=== PATIENT | male | born 1970 | race Asian ===

== ENCOUNTER 2021-08-09 10:37 | Observation (INO) | payer BC, SELFPAY ==
--- OUTSIDE RECORDS SUMMARY | 2021-08-09 10:40 | XMS REPORT | Continuity of Care Document ---
:1970 Author Organization [facility] t Address [address] [place] [address] [address]. [address] [place] [address] Care Team Providers Name Role Phone Michelle VALENTINO Attending Clinician Payers Payer Name Policy Type Policy Number Effective Date Expiration Date S ource Problems Condition Condition Condition Status Onset Resolution Last Treating Co mments Source Name Details Category Date Date Treatment Clinician Date Encounter Encounter Disease Active Lillian catrachito for for 01-28 College follow-up follow-up 00:00: of surveillan surveillan 00 Me dicin ce of ce of e kidney kidney cancer cancer Aftercare Aftercare Disease Active Lillian catrachito following following 07-25 [facility] surgery surgery 00:00: of for for 00 Medicin neoplasm neoplasm e Left renal Left renal Disease Active [facility] mass 1- College 00:00: of 00 Medicin e Hematuria Hematuria Disease Active 2013-07 Lillian catrachito 2 College 00:00: of 00 Medicin e Left Left Disease Active 2013-07 [facility] kidney kidney 2-08 College mass mass 00:00: of 00 Medicin e Hypertensi Hypertensi Disease Active [facility] on on College of Medicin e Allergies, Adverse Reactions, Alerts Allergy Allergy Status Severity Reaction(s) Onset Inactive Treating Comm ents Source Name Type Date Date Clinician Ibuprofe Propensi Active Hives 2013-07 [facility] n ty to 08-31 College adverse 00:00: of reaction 00 Medicin s to e drug Salicyla Propensi Active Hives 2013-07 [facility] jannet ty to 08-31 College adverse 00:00: of reaction 00 Medicin s to e drug Shellfis Propensi Active Hives 2013-07 [facility] h-Derive ty to 08-31 College d adverse 00:00: of Products reaction 00 Medici n s to e drug Aspirin Propensi Active Hives 2013-07 [facility] ty to 08-20 [place] adverse 00:00: of reaction 00 Medicin s to e drug Nsaids Propensi Active Hives 2013-07 Not all [facility] ty to 08-20 the [place] adverse 00:00: times, of reaction 00 but he Medicin s to avoids e drug NSAIDS as much as possible. Social History Social Habit Start Date Stop Date Quantity Comments Source Exposure to Yes [facility] Venu rodriguez SARS-CoV-2 (event) of Med icine Cigarette 2020-06-20 2020-06-20 [facility] pack-years 00:00:00 00:00:00 of Medicine Tobacco use and 2020-06-20 2020-06-20 Never used [facility] Co llege exposure 00:00:00 00:00:00 of Medicine Alcohol intake 2020-06-20 2020-06-20 [facility] Col lege 00:00:00 00:00:00 of Medicine Cigarettes smoked 2020-06-20 2020-06-20 [facility] current (pack per 00:00:00 00:00:00 of Medi day) - Reported History of tobacco 2013-06-19 Cigarette Smoker [facility] use 00:00:00 of Medicine Sex Ass[birth year] M [facility] Co [employer]lege 00:00:00 00:00:00 of Medicine Smoking Status Start Date Stop Date Source Former smoker 2020-06-20 00:00:00 2020-06-20 00:00:00 [facility] regan of Medicine Medications Ordered Filled Start Stop Current Ordering Indication Dosage Frequency Signature Comments Components Source Medication Medication Date Date Medication? Clinician (SIG) Name Name [place]-3 2019-07 Yes 1000mg Take 1,000 [facility] Fatty Acids 2-09 mg by [place] (FISH OIL) 15:27: mouth two of 1000 MG 42 times Medicin CAPS daily. e Ascorbic 2019-07 Yes 1000mg Take 1,000 [facility] Acid 2-09 mg by [place] (VITAMIN C) 15:27: mouth of 1000 MG 42 daily. Medicin TABS e Multiple 2019-07 Yes Take by [facility] blood Vitamins-Mi 2-09 mouth. Colleg e n[facility] (EYE 15:27: of VITAMINS 42 Medicin OR) e RESTASIS Yes INSTILL 1 [facility] 0.05 % 4-12 DROP INTO College ophthalmic 00:00: BOTH EYES of emulsion 00 TWICE A Medicin DAY e levobunolol 2018- Yes 1 DROP IN [facility] (BETAGAN) 4-12 LEFT EYE Colleg e 0.5 % 00:00: EVERY 12 of ophthalmic 00 HOURS Medicin solution e Immunizations Ordered Immunization Filled Immunization Date Status Commen ts Source Name Name Influenza Quad-PF 2020-03-27 Completed [facility] 00:00:00 of Medicine Vital Signs Vital Name Observation Time Observation Value Comments Source Systolic blood 2020-06-20 15:28:00 145 mm[Hg] [facility] pressure Medicine Diastolic blood 2020-06-20 15:28:00 85 mm[Hg] [facility] Medicine Heart rate 2020-06-20 15:28:00 60 /min [facility] Body temperature 2020-06-20 15:28:00 36.72 Annamaria [facility] Respiratory rate 2020-06-20 15:28:00 17 /min [facility] Body height 2020-06-20 15:28:00 170.2 cm [facility] Body weight 2020-06-20 15:28:00 83.915 kg [facility] BMI 2020-06-20 15:28:00 28.98 kg/m2 [facility] Procedures Procedure Date / Time Performed Performing Clinician Sour e POCT URINALYSIS 2020-06-20 00:00:00 Malachi Martinez [facility] Radha ege of DIPSTICK Medicine Plan of Care Planned Activity Planned Date Details Comments Source Future Scheduled Test COLON CANCER SCREENING: [facility] COLONOSCOPY [code = Medicine COLON CANCER SCREENING: COLONOSCOPY] Future Scheduled Test TETANUS SHOT (ADULT) [facility] [code = TETANUS SHOT Medicin e (ADULT)] Future Scheduled Test BMI FOLLOW UP PLAN [facility] [code = BMI FOLLOW UP Medici ne PLAN] Future Scheduled Test HEPATITIS C SCREENING [facility] [code = HEPATITIS C Medicine SCREENING] Future Scheduled Test HIV SCREENING [code = [facility] HIV SCREENING] Medicine Future Scheduled Test ZOSTER VACCINE (1 of 2) [facility] [code = ZOSTER VACCINE Medic ine (1 of 2)] Encounters Start End Encounter Admission Attending Care Care Encounter Source Date/Time Date/Time Type Type Clinicians Facility Department ID 2020-06-20 2020-06-20 Office LEORA Martinez [id number] [facility] 08:34:32 08:49:32 Visit Malachi AMBULATOR [id number] College Y [id number] of [id number] Medi delvin 300 e Results Test Description Test Time Test Comments Results Result Comments Source POCT URINALYSIS DIPSTICK 2020-06-20 15:27:00 Test Item Value Reference Range Interpretation Comme nts COLOR UA (test code = 5778-6) Yellow YELLOW/STRAW CLARITY UA (test code = 63214-0) Clear CLEAR GLUCOSE UA (test code = 5792-7) Negative NEGATIVE BILIRUBIN UA (test code = 5770-3) Negative NEGATIVE KETONES UA (test code = 40990-6) Negative NEGATIVE SPECIFIC GRAVITY UA (test code = 5811-5) 1.005-1.035 BLOOD UA (test code = 5794-3) Negative NEGATIVE PH UA (test code = 5803-2) 5-9 PROTEIN UA (test code = 5804-0) Trace NEGATIVE UROBILINOGEN UA (test code = 5818-0) 0.02 E.U/DL NORMAL MG/DL LEUKOCYTE ESTERASE UA (test code = 5799-2) Negative NEGATIVE NITRITE UA (test code = 5802-4) Negative NEGATIVE REDUCING SUBSTANCES URINE (test code = 48242-3) [facility]
[2021-08-09] MEDS ORDERED: FAMOTIDINE 20 MG/2 ML VIAL IV ONE (11:24)
[2021-08-09] MEDS ORDERED: MORPHINE 4 MG/ML SYR ONE ×2 (11:24→12:52)
[2021-08-09] MEDS ORDERED: ONDANSETRON 4 MG/2 ML VIAL ONE (11:24)
[2021-08-09 11:29] LABS: Absolute Lymphocytes (CBC) 1.3 K/uL (0.7-4.9); Hematocrit 47.3 % (39.6-49.0); Lymphocytes % 12.3 % (15.3-44.8); MPV 7.2 fL (7.6-11.3); RBC Red Blood Cell Count 5.08 M/uL (4.33-5.43)
[2021-08-09 11:38] LABS: Protime INR 0.98
[2021-08-09 11:39] LABS: Albumin 4.1 g/dL (3.4-5.0); Bilirubin Direct 0.2 mg/dL (0-0.2); Bilirubin Total 0.9 mg/dL (0.2-1.0); Magnesium 2.1 mg/dL (1.8-2.4); Potassium 3.9 mmol/L (3.5-5.1); Protein, Total 8.5 g/dL (6.4-8.2)
--- NOTE | 2021-08-09 11:53 | RAD REPORT ---
EXAM DESCRIPTION: CT - Head Brain Wo Cont - 08/09/2021 11:40 am CLINICAL HISTORY: vomiting;Dizziness;Headache;Weakness Headache, drowsiness. COMPARISON: No comparisons TECHNIQUE: All CT scans are performed using dose optimization technique as appropriate and may inclu de automated exposure control or mA/KV adjustment according to patient size. FINDINGS: No intracranial hemorrhage, hydrocephalus or extra-axial fluid collection.No areas of brai n edema or evidence of midline shift. Mild mucoperiosteal thickening affects the left maxillary antrum. The paranasal sinuses and mastoids are otherwise clear. The calvarium is intact. IMPRESSION: No acute intracranial abnormality.
[2021-08-09 11:54] LABS: Troponin High Sensitivity 133.9 pg/mL (<58.9)
--- NOTE | 2021-08-09 11:54 | RAD REPORT ---
EXAM DESCRIPTION: RAD - Chest Single View - 08/09/2021 11:34 am CLINICAL HISTORY: CHEST PAIN Chest pain. COMPARISON: Chest Pa And Lat (2 Views) dated 11/18/2017; Chest Pa And Lat (2 Views) dated 07/16/2016; Ch est Pa And Lat (2 Views) dated 01/23/2016; CHEST PA AND LAT 2 VIEW dated 03/08/2015 FINDINGS: Portable technique limits examination quality. The lungs are grossly clear. The heart is normal in size. No displaced fractures. IMPRESSION: No acute intrathoracic process suspected.
--- NOTE | 2021-08-09 11:56 | RAD REPORT ---
EXAM DESCRIPTION: CT - CTORBIT CLINICAL HISTORY: headache/ htn Headache and eye pain COMPARISON: No comparisons TECHNIQUE: Axial 2 mm thick images of the face were obtained with sagittal and coronal reconstructio n images. All CT scans are performed using dose optimization technique as appropriate and may include automated exposure control or mA/KV adjustment according to patient size. FINDINGS: Both globes are normal in size.No vitreous abnormality seen.No intraconal or extra-conal m ass or other significant abnormality. No proptosis evident. Mild mucoperiosteal thickening of the left maxillary antrum is seen in with subtle bony thickening mar ggestive of chronic sinusitis. IMPRESSION: No pathologic orbital finding. Mild left maxillary chronic sinusitis.
--- NOTE | 2021-08-09 12:45 | EDPHYS ---
Physician Documentation [facility] Name: Jose Manuel Malin Jr Age: 50 yrs Sex: Male : 1970 Arrival Date: 08/09/2021 Time: 10:37 Bed 27 Private MD: ED Physician Real Mcmanus HPI: 08/09 13:39 This 50 yrs old Male presents to ER via Ambulatory with complaints of High Blood kdr Pressure. 13:39 Patient began with headache yesterday morning. Not persisted on centered around his kdr left orbit and left parietal area of his scalp. He was able to obtain an appointment with Dr. Yosef workman this morning to determine if the pain was due to some ocular issue. Patient states that his ocular pressure per Dr. Yosef workman was borderline but did not require treatment. Dr. Yosef workman then scheduled and orbit CT for Thursday. After leaving the office the patient became nauseated and vomited. His headache was not specifically worse. After the headache he had some broad anterior chest wall pain. But at no time over the course of the last few days has the patient specifically complained of chest pain without an apparent associated cause.. Onset: The symptoms/episode began/occurred yesterday. Severity of symptoms: At their worst the symptoms were mild moderate just prior to arrival, in the emergency department the symptoms are unchanged. The patient has not experienced similar symptoms in the past. The patient has not recently seen a physician. Historical: - Allergies: 10:45 Aspirin; ap3 10:45 NSAIDS; ap3 - Home Meds: 10:45 omeprazole 40 mg Oral cpDR 1 cap [Active]; Crestor 5 mg oral tab [Active]; ap3 - PMHx: 11:56 Hypertensive disorder; jl7 - Immunization history:: Client reports receiving the 2nd dose of the Covid vaccine, and booster. - Social history:: Smoking status: Patient denies any tobacco usage or history of. ROS: 13:39 Constitutional: Negative for fever, chills, and weight loss, Eyes: Negative for injury, kdr pain, redness, and discharge, Neck: Negative for injury, pain, and swelling, Respiratory: Negative for shortness of breath, cough, wheezing, and pleuritic chest pain, Back: Negative for injury and pain, : Negative for injury, bleeding, discharge, and swelling, MS/Extremity: Negative for injury and deformity, Skin: Negative for injury, rash, and discoloration. 13:39 Eyes: Positive for Left orbit pain, Negative for acute changes, blurry vision, icterus, injury or acute deformity, matting, photophobia, redness, sunken appearance, swelling, tearing, vision loss, visual disturbance. 13:39 Abdomen/GI: Positive for nausea and vomiting, Negative for abdominal pain, diarrhea, constipation, abdominal cramps, abdominal distension, anorexia, dysphagia, hematemesis, black/tarry stool, rectal pain, rectal bleeding, bowel incontinence. Exam: 13:39 Constitutional: This is a well developed, well nourished patient who is awake, alert, kdr and in no acute distress. Head/Face: Normocephalic, atraumatic. Eyes: Pupils equal round and reactive to light, extra-ocular motions intact. Lids and lashes normal. Conjunctiva and sclera are non-icteric and not injected. Cornea within normal limits. Periorbital areas with no swelling, redness, or edema. Neck: Trachea midline, no thyromegaly or masses palpated, and no cervical lymphadenopathy. Supple, full range of motion without nuchal rigidity, or vertebral point tenderness. No Meningismus. Chest/axilla: Normal chest wall appearance and motion. Nontender with no deformity. No lesions are appreciated. Cardiovascular: Regular rate and rhythm with a normal S1 and S2. No gallops, murmurs, or rubs. Normal PMI, no JVD. No pulse deficits. Respiratory: Lungs have equal breath sounds bilaterally, clear to auscultation and percussion. No rales, rhonchi or wheezes noted. No increased work of breathing, no retractions or nasal flaring. Abdomen/GI: Soft, non-tender, with normal bowel sounds. No distension or tympany. No guarding or rebound. No evidence of tenderness throughout. Back: No spinal tenderness. No costovertebral tenderness. Full range of motion. Skin: Warm, dry with normal turgor. Normal color with no rashes, no lesions, and no evidence of cellulitis. MS/ Extremity: Pulses equal, no cyanosis. Neurovascular intact. Full, normal range of motion. Neuro: Awake and alert, GCS 15, oriented to person, place, time, and situation. Cranial nerves II-XII grossly intact. Motor strength 5/5 in all extremities. Sensory grossly intact. Cerebellar exam normal. Normal gait. Psych: Awake, alert, with orientation to person, place and time. Behavior, mood, and affect are within normal limits. Vital Signs: 10:43 BP 174 / 89; Pulse 61; Resp 17; Temp 98.2; Pulse Ox 98% ; Weight 91.17 kg; Height 5 ft. ap3 7 in. (170.18 cm); Pain 6/10; 11:10 BP 157 / 91; Pulse 71; Resp 17; Pulse Ox 97% on R/A; ww 12:00 BP 147 / 96; Pulse 58; Resp 20; Pulse Ox 99% on R/A; jg9 13:00 BP 150 / 97; Pulse 56; Resp 16 S; Pulse Ox 100% on R/A; jg9 10:43 Body Mass Index 31.48 (91.17 kg, 170.18 cm) ap3 MDM: 12:44 Patient medically screened. kdr 13:39 Data reviewed: vital signs, nurses notes, lab test result(s), EKG, radiologic studies. kdr Counseling: I had a detailed discussion with the patient and/or guardian regarding: the historical points, exam findings, and any diagnostic results supporting the discharge/admit diagnosis, lab results, radiology results, the need for further work-up and treatment in the hospital. 08/09 11:03 Order name: Basic Metabolic Panel [facility] 08/09 11:03 Order name: CBC with Diff [facility] 08/09 11:03 Order name: LFT's; Complete Time: 12: [facility] 08/09 11:03 Order name: Magnesium; Complete Time: 12: [facility] 08/09 11:03 Order name: NT PRO-BNP; Complete Time: 12: [facility] 08/09 11:03 Order name: PT-INR; Complete Time: 12: [facility] 08/09 11:03 Order name: Troponin HS; Complete Time: 12: [facility] 08/09 11:03 Order name: XRAY Chest (1 view); Complete Time: 12: [facility] 08/09 11:03 Order name: Basic Metabolic Panel; Complete Time: 12: [facility] 08/09 11:03 Order name: CBC with Automated Diff; Complete Time: 12: [facility] 08/09 11:57 Order name: SARS-COV-2 RT PCR (Document "Date of Onset" if Symptomatic) 08/09 15:03 Order name: Creatine Phosphokinase [facility] 08/09 15:03 Order name: Creatine Phosphokinase [facility] 08/09 16:05 Order name: Troponin High Sensitivity [facility] 08/09 11:03 Order name: EKG; Complete Time: 11:04 kdr 08/09 11:03 Order name: Cardiac monitoring; Complete Time: 11:10 kdr 08/09 11:03 Order name: EKG - Nurse/Tech; Complete Time: 11:10 kdr 08/09 11:03 Order name: IV Saline Lock; Complete Time: 11:10 kdr 08/09 11:03 Order name: Labs collected and sent; Complete Time: 11: [facility] 08/09 11:15 Order name: CT Head Brain wo Cont; Complete Time: 12:01 [facility] 08/09 11:23 Order name: Orbits Wo Con W/ Mpr; Complete Time: 12:01 [facility] 08/09 12:38 Order name: MRI - Brain W/Wo Cont [facility] 08/09 15:03 Order name: Heart Healthy [facility] 08/09 11:03 Order name: O2 Per Protocol; Complete Time: 11:10 kdr 08/09 11:03 Order name: O2 Sat Monitoring; Complete Time: 11:10 kdr Administered Medications: 11:28 Drug: Zofran (Ondansetron) 4 mg Route: IVP; Site: right antecubital; jg9 13:01 Follow up: Response: Nausea is decreased jg9 11:30 Drug: morphine 4 mg Route: IVP; Site: right antecubital; jg9 12:00 Follow up: Response: No adverse reaction; Pain is decreased jg9 11:31 Drug: Pepcid (famotidine) 20 mg Route: IVP; Site: right antecubital; jg9 13:00 Follow up: Response: No adverse reaction jg9 12:50 Drug: morphine 4 mg {Note: RASS-0, medication given IV.} Route: IM; Site: Other; jg9 13:03 Follow up: Response: No adverse reaction; Pain is decreased jg9 12:57 Drug: PlaVIX (clopidogrel) 75 mg Route: PO; jg9 13:03 Follow up: Response: No adverse reaction jg9 12:57 Drug: Lisinopril 20 mg Route: PO; jg9 13:03 Follow up: Response: No adverse reaction jg9 Disposition Summary: 08/09/21 12:44 Hospitalization Ordered Hospitalization Status: Observation kdr Provider: Marianela Pool kdr Condition: Fair kdr Problem: an ongoing problem kdr Symptoms: have improved kdr Bed/Room Type: Standard kdr Location: Intensive Care Unit(08/10/21 00:16) Room Assignment: 1-(08/10/21 00:16) mw Diagnosis - Headache kdr - Hypertensive heart disease without heart failure kdr - Subsequent non-ST elevation (NSTEMI) myocardial infarction kdr Forms: - Medication Reconciliation Form kdr - SBAR form kdr Signatures: Dispatcher [employer] EDMS Ruthie Aguirre RN RN mw Real Mcmanus MD MD kdr Leal, Jahala RN RN jl7 Elva Melchor RN RN ap3 Lynda Maldonado Jennifer RN RN jg9 Corrections: (The following items were deleted from the chart) 10:47 10:45 Home Meds: None; ap3 ap3 11:23 11:19 CT-ORBITS WITHOUT CONTRAST ordered. EDMS EDMS 15:39 12:44 Telemetry/MedSurg (observation) kdr eb 15:39 12:44 kdr eb 08/10 00:16 08/09 15:39 [facility] ER HOLD eb mw 08/10 00:16 08/09 15:39 ERHOLD- eb mw
--- NOTE | 2021-08-09 12:45 | ER ---
Nurse's Notes [facility] Name: Jose Manuel Malin Jr Age: 50 yrs Sex: Male : 1970 Arrival Date: 08/09/2021 Time: 10:37 Bed 27 Private MD: Diagnosis: Headache;Hypertensive heart disease without heart failure;Subsequent non-ST elevation (NSTEMI) myocardial infarction Presentation: 08/09 10:43 Chief complaint: Patient states: he has a headache and reports high blood pressure ap3 reading prior to arrival. Patient reports he left work early last night due to the same issues. Patient denies hx of htn. Coronavirus screen: At this time, the client does not indicate any symptoms associated with coronavirus-19. Ebola Screen: No symptoms or risks identified at this time. Initial Sepsis Screen: Does the patient meet any 2 criteria? No. Patient's initial sepsis screen is negative. Does the patient have a suspected source of infection? No. Patient's initial sepsis screen is negative. Risk Assessment: Do you want to hurt yourself or someone else? Patient reports no desire to harm self or others. Onset of symptoms was August 08, 2021. 10:43 Method Of Arrival: Ambulatory ap3 10:43 Acuity: HELGA 3 ap3 Triage Assessment: 10:47 General: Appears uncomfortable, Behavior is calm, cooperative. Pain: Complains of pain ap3 in left eye and left side of head Pain radiates to ro right side of the head Pain currently is 6 out of 10 on a pain scale. Pain began gradually, 1 day ago. Neuro: Level of Consciousness is awake, alert, obeys commands, Oriented to person, place, time, situation, Moves all extremities. Gait is steady, Facial symmetry appears normal. Respiratory: Airway is patent Respiratory effort is even, unlabored. GI: Reports nausea, vomiting, vomiting X's 3 this morning. Historical: - Allergies: 10:45 Aspirin; ap3 10:45 NSAIDS; ap3 - Home Meds: 10:45 omeprazole 40 mg Oral cpDR 1 cap [Active]; Crestor 5 mg oral tab [Active]; ap3 - PMHx: 11:56 Hypertensive disorder; jl7 - Immunization history:: Client reports receiving the 2nd dose of the Covid vaccine, and booster. - Social history:: Smoking status: Patient denies any tobacco usage or history of. Screenin:49 Abuse screen: Denies threats or abuse. Nutritional screening: No deficits noted. ap3 Tuberculosis screening: No symptoms or risk factors identified. 11:10 Fall Risk None identified. ww Assessment: 11:10 General: Appears well groomed, well developed, Behavior is calm, cooperative, ww appropriate for age. Pain: Denies pain. Neuro: Level of Consciousness is awake, alert, obeys commands, Oriented to person, place, time, situation, Gait is steady, Speech is normal. Cardiovascular: Reports lightheadedness, nausea, vomiting, high blood pressure Capillary refill < 3 seconds Rhythm is regular. Respiratory: Airway is patent Respiratory effort is even, unlabored, Respiratory pattern is regular, symmetrical. GI: Abdomen is non-distended, Abd is soft and non tender X 4 quads. Reports nausea, vomiting. : No signs and/or symptoms were reported regarding the genitourinary system. EENT: Reports dizziness. Derm: Skin is intact, is healthy with good turgor, Skin is clammy, Skin is. Musculoskeletal: Circulation, motion, and sensation intact. 12:20 Reassessment: Patient appears in no apparent distress at this time. No changes from ww previously documented assessment. Patient and/or family updated on plan of care and expected duration. Pain level reassessed. Patient is alert, oriented x 3, equal unlabored respirations, skin warm/dry/pink. Vital Signs: 10:43 BP 174 / 89; Pulse 61; Resp 17; Temp 98.2; Pulse Ox 98% ; Weight 91.17 kg; Height 5 ft. ap3 7 in. (170.18 cm); Pain 6/10; 11:10 BP 157 / 91; Pulse 71; Resp 17; Pulse Ox 97% on R/A; ww 12:00 BP 147 / 96; Pulse 58; Resp 20; Pulse Ox 99% on R/A; jg9 13:00 BP 150 / 97; Pulse 56; Resp 16 S; Pulse Ox 100% on R/A; jg9 10:43 Body Mass Index 31.48 (91.17 kg, 170.18 cm) ap3 ED Course: 10:37 Patient arrived in ED. ds1 10:38 Real Mcmanus MD is Attending Physician. kdr 10:45 Triage completed. ap3 10:49 Arm band placed on right wrist. ap3 11:05 Martine Mcclelland, RN is Primary Nurse. jg9 11:10 Patient has correct armband on for positive identification. Bed in low position. Call ww light in reach. Side rails up X 1. Adult w/ patient. monitor car operator on. Pulse ox on. NIBP on. 11:10 Basic Metabolic Panel Sent. ww 11:10 CBC with Diff Sent. ww 11:10 Initial lab(s) drawn, by ED staff, sent to lab. EKG done, by ED staff, reviewed by omero Mcmanus MD. Inserted saline lock: 22 gauge in right antecubital area, using aseptic technique. 11:34 XRAY Chest (1 view) In Process Unspecified. EDMS 11:40 CT Head Brain wo Cont In Process Unspecified. EDMS 11:40 Orbits Wo Con W/ Mpr In Process Unspecified. EDMS 12:00 No apparent distress. Resting quietly. jg9 12:00 Pt visited by . jg9 12:43 Marianela Pool MD is Hospitalizing Provider. kdr 14:48 MRI - Brain W/Wo Cont In Process Unspecified. EDMS 16:27 No provider procedures requiring assistance completed. jg9 16:27 Patient admitted, IV remains in place. jg9 Administered Medications: 11:28 Drug: Zofran (Ondansetron) 4 mg Route: IVP; Site: right antecubital; jg9 13:01 Follow up: Response: Nausea is decreased jg9 11:30 Drug: morphine 4 mg Route: IVP; Site: right antecubital; jg9 12:00 Follow up: Response: No adverse reaction; Pain is decreased jg9 11:31 Drug: Pepcid (famotidine) 20 mg Route: IVP; Site: right antecubital; jg9 13:00 Follow up: Response: No adverse reaction jg9 12:50 Drug: morphine 4 mg {Note: RASS-0, medication given IV.} Route: IM; Site: Other; jg9 13:03 Follow up: Response: No adverse reaction; Pain is decreased jg9 12:57 Drug: PlaVIX (clopidogrel) 75 mg Route: PO; jg9 13:03 Follow up: Response: No adverse reaction jg9 12:57 Drug: Lisinopril 20 mg Route: PO; jg9 13:03 Follow up: Response: No adverse reaction jg9 Outcome: 12:44 Decision to Hospitalize by Provider. kdr 16:27 Admitted to ER Hold. Please see [facility] for further documentation. jg9 16:27 Condition: stable 08/10 02:17 Patient left the ED. tw5 Signatures: Dispatcher [employer] EDMS Real Mcmanus MD MD kdr Sanford, Demi ds1 Tammy Amanda RN RN jl7 Elva Melchor RN RN Sena Garcia tw5 Martine Mcclelland RN RN jg9 Maria Alejandra Emerson RN RN ww Corrections: (The following items were deleted from the chart) 08/09 10:47 10:45 Home Meds: None; ap3 ap3 13:07 13:00 Pulse 56bpm; Resp 16bpm; Spontaneous; Pulse Ox 100% RA; jg9 jg9
[2021-08-09] MEDS ORDERED: CLOPIDOGREL 75 MG TABLET ONE (12:52)
[2021-08-09] MEDS ORDERED: lisinopriL 20 MG TAB ONE (12:52)
--- NOTE | 2021-08-09 14:52 | P.HP ---
Certification for Inpatient Patient admitted to: Observation Patient will require the following post-hospital care: None Practitioner: I am a practitioner with admitting privileges, knowledge of patient current condition, hospital course, and medical plan of care. Services: Services provided to patient in accordance with Admission requirements found in Title 42 Section 412.3 of the Code of Federal Regulations Patient History Date of Service: 08/09/21 Reason for admission: Left eye pain with persistent headache History of Present Illness: 50-year-old male with past medical history of hypertension, left nephrectomy for renal/adrenal mass in 2013, subsequent taking of blood pressure regimen, recently diagnosed bilateral glaucoma with intervention to right eye but with chronic intermittent left eye pain; developed worsening of left eye pain with associated headache since the last 1 week. Patient also was noted with elevated blood pressure. He has been off his blood pressure medication since the last 3 years after improved blood pressure post nephrectomy. He was told by his PCP that his blood pressure was borderline during exam 2 months ago. He was noted with elevated blood pressure with systolic in the 150s 1 week ago in the setting of recurrence of the left eye pain. He took his few days of walk to rest and his symptoms improved. He had started work again 2 days ago but noticed recurrence and worsening of his left eye pain with associated periorbital headache radiating to the occipital area. Pain has been persistent despite tramadol medication taken yesterday. He developed nausea, recurrent tinnitus and two episodes of vomiting this morning with worsening of the headache. His blood pressure at home was in the 160s over 90s. He was brought to the emergency room where blood pressure was 179/89. Head CT shows no acute intracranial pathology. Orbital CT which shows no acute finding except for left chronic maxillary sinusitis. Chest x-ray shows no acute infiltrates or pulmonary edema. EKG shows minimal ST segment changes in the lateral lead. He was noted with elevated troponin of 135. Rest of unremarkable labs. He has been scheduled for MRI now. He was given lisinopril as well as IV morphine. He states his eye pain and and headache has improved to 3 out of 10 now. He denies any excessive salt intake. He denies any family history of dialysis use. His mother had CVA. He is a former smoker but quit over 8 years ago. A stress test from 2013 was essentially negative. Family/spouse at bedside discussed with Allergies aspirin Allergy (Verified 04/25/16 09:09) Hives Sea food Allergy (Uncoded 11/05/15 09:09) Hives Home medications list reviewed: Yes Home Medications: NK [No Home Meds] 11/05/15 - Past Medical/Surgical History Has patient received pneumonia vaccine in the past: No -: Hypertension -: Left renal mass status post nephrectomy -: Last tobacco use -: Left nephrectomy 2013 - Family History Mother -: Hypertension, Stroke - Social History Smoking Status: Former smoker Smoking therapy provided: No Alcohol use: No CD- Drugs: No Caffeine use: No Place of Residence: Home Review of Systems Eyes: Pain Gastrointestinal: Nausea, Vomiting Physical Examination - Physical Exam General: Alert, In no apparent distress, Oriented x3, Cooperative HEENT: Atraumatic, Normocephalic, PERRLA Neck: Supple, 2+ carotid pulse no bruit, JVD not distended Respiratory: Clear to auscultation bilaterally, Normal air movement Cardiovascular: No edema, Normal pulses, Regular rate/rhythm, Normal S1 S2 Gastrointestinal: Normal bowel sounds, Soft and benign, Non-distended Musculoskeletal: No clubbing, No swelling Integumentary: No rashes, No breakdown Neurological: Normal gait, Normal speech, Normal strength at 5/5 x4 extr External genitalia: No edema, No lesions - Studies Laboratory Data (last 24 hrs) 08/09/21 11:05: PT 11.3, INR 0.98 08/09/21 11:05: WBC 10.30, Hgb 15.9, Hct 47.3, Plt Count 222 08/09/21 11:05: Sodium 137, Potassium 3.9, BUN 12, Creatinine 1.17, Glucose 135 H, Magnesium 2.1, Total Bilirubin 0.9, AST 22, ALT 39, Alkaline Phosphatase 54 Assessment and Plan - Problems (Diagnosis) (1) Migraine headache Current Visit: Yes Status: Acute (2) Hypertensive urgency Current Visit: Yes Status: Acute (3) Elevated troponin Current Visit: Yes Status: Acute (4) Hyperlipidemia Current Visit: Yes Status: Acute - Plan Hypertensive urgencylikely cause of headache and eye pain symptoms, rule out migraine headache Elevated troponin History of hyperlipidemia Status post nephrectomy history Plan We will admit patient observation -Follow MRI of the brain to rule out occult CVA -We need to initiate blood pressure regimen since previously off medication since the last 4 years. EKG findings as well as elevated troponin may be due to acute blood pressure elevation -Initiate patient on lisinopril as well as HCTZ since associated chronic tinnitus as well as glaucoma -Trend cardiac enzymes -Expected troponin to continue to decrease with improving blood pressure, however If persistent elevated troponin will need cardiology eval possible cardiac cath -May benefit from outpatient stress test if troponin trend down to normal over the next 24 hours -Since allergy to aspirin, start Plavix -Follow lipid panel in a.m., continue home dose of Crestor -Adequate pain medication for headache control today -DVT prophylaxis with Lovenox -Need for adequate blood pressure control discussed with spouse who is a staff here -Possible discharge in a.m. Advance directivefull code - Advance Directives Does patient have a Living Will: No Does patient have a Durable POA for Healthcare: No
[2021-08-09] MEDS ORDERED: ALBUTEROL 2.5 MG/3 ML NEB SOL NEB PRN (14:58)
[2021-08-09] MEDS ORDERED: ACETAMINOPHEN 500 MG TAB PO PRN (14:58)
[2021-08-09] MEDS ORDERED: MORPHINE 2 MG/ML SYR IV PRN (14:58)
[2021-08-09] MEDS ORDERED: Oxycodone HCl/Acetaminophen 1 TAB TAB PO PRN (15:00)
[2021-08-09] MEDS ORDERED: HYDRALAZINE HCL 20 MG/ML VIAL IV PRN (15:00)
--- NOTE | 2021-08-09 15:01 | RAD REPORT ---
EXAM DESCRIPTION: MRI - Brain W/Wo Cont - 08/09/2021 2:49 pm CLINICAL HISTORY: Headache COMPARISON: head CT August 09, 2021 TECHNIQUE: Axial, sagittal, and coronal magnetic images of the brain were obtained. 20 cc MultiHance administered intravenously FINDINGS: No significant abnormal signal within the brain. The ventricles are normal in caliber. Diffusion-weighted/ ADC mapping sequences do not demonstrate evidence of an acute infarction. No abnormal enhancement within the brain is seen. An extra-axial fluid collection is not noted. Fluid within the sinuses/mastoids is not seen. Chronic left maxillary sinusitis IMPRESSION: No acute intracranial abnormality displayed
[2021-08-09] MEDS: hydroCHLOROthiazide 25 MG TAB PO SCH (15:02)
[2021-08-09] MEDS ORDERED: hydroCHLOROthiazide 25 MG TAB ONE (15:59)
[2021-08-09] MEDS ORDERED: NITROGLYCERIN 0.2 MG/HR (5 MG) PATCH TD ONE (17:00)
[2021-08-09 17:10] VITALS: BMI 31.3
[2021-08-09] MEDS ORDERED: lisinopriL 10 MG TAB ONE (20:53)
[2021-08-09] MEDS ORDERED: NITROGLYCERIN 1 GM PKT TD ONE (20:53)
[2021-08-09] MEDS ORDERED: ROSUVASTATIN 10 MG TAB PO SCH (21:00)
[2021-08-09] MEDS ORDERED: lisinopriL 10 MG TAB PO SCH (21:00)
[2021-08-09] MEDS ORDERED: ROSUVASTATIN 10 MG TAB ONE (21:03)
[2021-08-09] MEDS ORDERED: ACETAMINOPHEN 500 MG TAB ONE (23:18)
[2021-08-10] MEDS: ONDANSETRON 4 MG/2 ML VIAL IV PRN ×2 (00:30→08:19)
[2021-08-10] MEDS ORDERED: ONDANSETRON 4 MG/2 ML VIAL ONE (00:35)
[2021-08-10] MEDS: FAMOTIDINE 20 MG/2 ML VIAL IV SCH ×2 (02:10→08:19)
[2021-08-10 05:00] LABS: Absolute Lymphocytes (CBC) 1.6 K/uL (0.7-4.9); Hematocrit 45.1 % (39.6-49.0); MPV 7.2 fL (7.6-11.3); RBC Red Blood Cell Count 4.83 M/uL (4.33-5.43)
[2021-08-10 05:22] LABS: Albumin 3.7 g/dL (3.4-5.0); Potassium 3.8 mmol/L (3.5-5.1)
[2021-08-10] MEDS: hydroCHLOROthiazide 25 MG TAB PO SCH (08:43)
[2021-08-10] MEDS ORDERED: CLOPIDOGREL 75 MG TABLET PO SCH (09:00)
[2021-08-10] MEDS ORDERED: NITROGLYCERIN 0.2 MG/HR (5 MG) PATCH TD SCH ×2 (09:00→21:00)
[2021-08-10] MEDS ORDERED: ENOXAPARIN 40 MG/0.4 ML SQ SCH (09:00)
[2021-08-10 10:11] VITALS: O2SAT 94
[2021-08-10] MEDS ORDERED: METHYLPREDNISOLONE 40 MG INJ IV ONE (11:20)
[2021-08-10] MEDS ORDERED: AZITHROMYCIN IV 250 MG in NA CHLORIDE 0.9% 250 ML IVPB ONE (12:00)
[2021-08-10] MEDS ORDERED: MECLIZINE HCL 12.5 MG TAB PO SCH (14:00)
[2021-08-10 14:48] LABS: Potassium 3.6 mmol/L (3.5-5.1)
[2021-08-10 18:35] VITALS: BP 132/76; TEMP 97.6
--- NOTE | 2021-08-10 19:33 | CON ---
Date of Consultation: 08/09/2021 Reason For Consultation: Elevated troponin and uncontrolled blood pressure. History Of Present Illness: A 50-year-old male with history of uncontrolled hypertension, l eft nephrectomy due to renal mass in 2013 with uncontrolled blood pressure, presented with very high blood pressure and headache. It has been going on for a week. Had some chest discomfort as well. E valuation revealed a borderline elevated highly sensitive troponin. Patient denies having exertional chest pain otherwise and there is no significant shortness of breath. At the time of my evaluation, he was totally chest pain free. Past Medical History: Hypertension; renal mass, status post nephrectomy. Past Surgical History: Nephrectomy. Medications: Refer consultation sheet for detailed list. Allergies: ASPIRIN AND NSAIDS. Social History: He is an ex-smoker. Does not drink or use any drugs. Does not smoke at the present time. Review of Systems: All systems reviewed. They were negative except as mentioned in HPI. Physical Examination: Vital Signs: Reviewed. Head and Neck: Pupils are equal and reactive to light. Intact eye movements. No JVD. No cervical lymphadenopathy. Neck: Supple. Thyroid is not enlarged. Lungs: Clear to auscultation bilaterally. No rhonchi, wheezing, or crackles. No accessory muscle u se. Heart: Regular rate and rhythm. No extra sounds. Abdomen: Soft, nontender. Bowel sounds are positive. No organomegaly. No masses or hernia. No ri gidity or rebound. Extremities: No edema, clubbing, or cyanosis. Intact pulses. Skin: No rash. Neurologic: Alert, awake, and oriented x3. No acute focal deficits appreciated. Investigations: Hemoglobin 15.9. Creatinine is 1.17. Troponin 133 and then 122. This is high sens itive troponin. EKG without acute specific changes. Assessment Recommendation: 1.Elevated troponin, which could be very well possible due to the hypertensive crisis and demand isc hemia. However, patient has risk factors. I will continue to trend the troponin and plan for exerci se stress test to be done, which can be done as an outpatient if he continues to be chest pain free. Start him on baby aspirin and need a better blood pressure control. 2.Hypertensive crisis, doing better. Continue current regimen and adjust medications as needed. SR/MODL Voice ID: [id number] Report ID: [id number]
--- NOTE | 2021-08-10 19:39 | PN ---
Date of Progress Note: 08/10/2021 Subjective: Seen by bedside, doing well. No further chest pain. Blood pressure is well controlled. Completely asymptomatic. Review of Systems: No chest pain, shortness of breath, orthopnea, or cough. No nausea, vomiting, diarrhea. No abdomina l pain. No history of urinary urgency. All other systems reviewed are negative. Physical Examination: Vital Signs: Reviewed. Head and Neck Exam: Pupils are equal, reactive to light. Intact eye movements. No JVD. No cervica l lymphadenopathy. Neck: Supple. Thyroid is not enlarged. Lungs: Clear to auscultation bilaterally. No rhonchi, rales, or crackles. No accessory muscle use. Heart: Regular rate and rhythm. No extra sounds. Abdomen: Soft, nontender. Bowel sounds positive. No organomegaly. No masses or hernia. No rigidi ty or rebound. Extremities: No edema, clubbing, cyanosis. Intact pulses. Skin: No rashes. Neurologic: Alert, awake, oriented x3. No acute focal deficits appreciated. Lymph Nodes: No cervical lymphadenopathy. Investigations: Labs were reviewed. Troponin is trending further down. Assessment And Recommendation: 1.Elevated troponin, likely due to demand, however, had some chest pain. From cardiac standpoint, t he patient has been stable. No further chest pain. Can be released. Explained to him the importanc e of following up closely as an outpatient for exercise stress test and an echocardiogram. 2.Uncontrolled hypertension and hypertensive crisis. Please put the patient on beta-sophie and he would benefit from vasodilators like amlodipine to get his blood pressure controlled. Avoid diuretic s due to borderline elevation in troponin and we will plan for outpatient exercise nuclear stress test and an echocardiogram. /MODL Voice ID: [id number] Report ID: [id number]
--- NOTE | 2021-08-12 04:53 | P.DS ---
Discharge Date: 08/10/21 Disposition: ROUTINE DISCHARGE Discharge Condition: GOOD Reason for Admission: Left eye pain with persistent headache Brief History of Present Illness: 50-year-old male with past medical history of hypertension, left nephrectomy for renal/adrenal mass in 2013, subsequent taking of blood pressure regimen, recently diagnosed bilateral glaucoma with intervention to right eye but with chronic intermittent left eye pain; developed worsening of left eye pain with associated headache since the last 1 week. Patient also was noted with elevated blood pressure. He has been off his blood pressure medication since the last 3 years after improved blood pressure post nephrectomy. He was told by his PCP that his blood pressure was borderline during exam 2 months ago. He was noted with elevated blood pressure with systolic in the 150s 1 week ago in the setting of recurrence of the left eye pain. He took his few days of walk to rest and his symptoms improved. He had started work again 2 days ago but noticed recurrence and worsening of his left eye pain with associated periorbital headache radiating to the occipital area. Pain has been persistent despite tramadol medication taken yesterday. He developed nausea, recurrent tinnitus and two episodes of vomiting this morning with worsening of the headache. His blood pressure at home was in the 160s over 90s. He was brought to the emergency room where blood pressure was 179/89. Head CT shows no acute intracranial pathology. Orbital CT which shows no acute finding except for left chronic maxillary sinusitis. Chest x-ray shows no acute infiltrates or pulmonary edema. EKG shows minimal ST segment changes in the lateral lead. He was noted with elevated troponin of 135. Rest of unremarkable labs. He has been scheduled for MRI now. He was given lisinopril as well as IV morphine. He states his eye pain and and headache has improved to 3 out of 10 now. He denies any excessive salt intake. He denies any family history of dialysis use. His mother had CVA. He is a former smoker but quit over 8 years ago. A stress test from 2013 was essentially negative. Family/spouse at bedside discussed with Hospital Course: Patient was seen by Cardiology and recommendations were for no significant inpatient workup at this time. Patient's MRI did reveal some sinusitis. Will go ahead and start on steroids and antibiotics. Continue with blood pressure control. Patient will follow up as an outpatient with Cardiology. Vital Signs/Physical Exam: Temp Pulse Resp BP Pulse Ox 97.6 F 66 18 132/76 95 08/10/21 16:00 08/10/21 16:00 08/10/21 16:00 08/10/21 16:00 08/10/21 16:00 General: Alert, In no apparent distress, Oriented x3 Laboratory Data at Discharge: WBC 10.40 K/uL (4.3-10.9) 08/10/21 04:28 Hgb 15.1 g/dL (13.6-17.9) 08/10/21 04:28 Hct 45.1 % (39.6-49.0) 08/10/21 04:28 Plt Count 205 K/uL (152-406) 08/10/21 04:28 PT 11.3 SECONDS (9.5-12.5) 08/09/21 11:05 INR 0.98 08/09/21 11:05 Sodium 134 mmol/L (136-145) L 08/10/21 14:18 Potassium 3.6 mmol/L (3.5-5.1) 08/10/21 14:18 BUN 17 mg/dL (7-18) 08/10/21 14:18 Creatinine 1.40 mg/dL (0.55-1.3) H 08/10/21 14:18 Glucose 116 mg/dL (74-106) H 08/10/21 14:18 Magnesium 2.1 mg/dL (1.8-2.4) 08/09/21 11:05 Total Bilirubin 1.0 mg/dL (0.2-1.0) 08/10/21 04:28 AST 14 U/L (15-37) L 08/10/21 04:28 ALT 35 U/L (12-78) 08/10/21 04:28 Alkaline Phosphatase 51 U/L (45-117) 08/10/21 04:28 Triglycerides 69 mg/dL (<150) 08/10/21 04:28 Cholesterol 156 mg/dL (<200) 08/10/21 04:28 HDL Cholesterol 44 mg/dL (40-60) 08/10/21 04:28 Cholesterol/HDL Ratio 3.55 08/10/21 04:28 Home Medications: Azithromycin Tab [Zithromax*] 250 mg PO ZPAK #1 hany 08/10/21 Clopidogrel Bisulfate [Plavix] 75 mg PO DAILY #30 tablet 08/10/21 Cyclosporine [Restasis] 1 drop EACH EYE BID 08/10/21 Dorzolamide Hcl Timolol 1 drop LEFT EYE BID 08/10/21 Famotidine [Pepcid] 20 mg PO BID #60 tablet 08/10/21 Levocetirizine Dihydrochloride [Xyzal] 5 mg PO DAILY #30 tablet 08/10/21 Lisinopril [Zestril] 10 mg PO DAILY #30 tablet 08/10/21 Meclizine HCl [Antivert*] 12.5 mg PO BID PRN #20 tab 08/10/21 [place]-3/Dha/Epa/Fish Oil [Cvs Fish Oil 1,000 mg Softgel] 2 each PO DAILY 08/10/21 Omeprazole [Prilosec] 40 mg PO DAILY 08/10/21 Ondansetron HCl 4 mg PO Q6H PRN #20 tablet 08/10/21 Rosuvastatin [Crestor*] 5 mg PO DAILY 08/10/21 predniSONE [Deltasone] 20 mg PO DAILY #5 tab 08/10/21 New Medications: Meclizine HCl [Antivert*] 12.5 mg PO BID PRN #20 tab PRN Reason: Vertigo Ondansetron HCl 4 mg PO Q6H PRN #20 tablet PRN Reason: Nausea / Vomiting Famotidine [Pepcid] 20 mg PO BID #60 tablet Clopidogrel Bisulfate [Plavix] 75 mg PO DAILY #30 tablet predniSONE [Deltasone] 20 mg PO DAILY #5 tab Levocetirizine Dihydrochloride [Xyzal] 5 mg PO DAILY #30 tablet Lisinopril [Zestril] 10 mg PO DAILY #30 tablet Azithromycin Tab [Zithromax*] 250 mg PO ZPAK #1 hany Physician Discharge Instructions: -DC IV and DC home -Follow-up with PCP in 1 to 2 weeks -Follow-up with Cardiology in 1 to 2 weeks -Please call Dr. Pool at [phone] if any questions regarding hospital stay -Please call nursing station at [phone] if any nursing or medication questions -Return to the emergency room if symptoms worsen Diet: AHA Activity: Fall precautions Followup: Jignesh Gutiérrez MD [Primary Care Provider] - Rolf Buchanan MD [ACTIVE - CAN ADMIT] - Time spent managing pt's care (in minutes): 35
--- NOTE | 2021-08-14 13:08 | EKG ---
Test Date: 2021-08-10 Test Time: 02:23:12 Clinic Cma: [facility] MEASUREMENT RESULTS: Intervals: Rate: 63 [place]: 178 QRSD: 92 QT: 410 QTc: 419 [place]: P: 11 [place]: 178 QRS: 25 T: 41 INTERPRETIVE STATEMENTS: Normal sinus rhythm Normal ECG Compared to ECG 08/09/2021 11:02:39 Sinus bradycardia no longer present Myocardial infarct finding no longer present Electronically Signed On 08-14-21 13:03:28 REGISTER REPAIRER by Mekhi Gillis
== END 2021-08-10 17:25 | disposition home or self-care (01) ==
LOC: ER 10:37 → ERHOLD 15:09 → 3RD-ICU 08-10 01:00 → INTOOBSV 08-10 10:44 → OBSVTOIN 08-10 10:44
PROVIDERS: ADMIT Internal Medicine; ATTEND Hospitalist
DX: I16.0 Hypertensive urgency (principal); J32.0 Chronic maxillary sinusitis; R77.8 Other specified abnormalities of plasma proteins; I24.8 Other forms of acute ischemic heart disease; E78.5 Hyperlipidemia, unspecified; H40.9 Unspecified glaucoma; Z87.891 Personal history of nicotine dependence; Z20.822 Contact with and (suspected) exposure to COVID-19; Z88.6 Allergy status to analgesic agent; Z91.013 Allergy to seafood; Z90.5 Acquired absence of kidney; Z82.3 Family history of stroke; Z82.49 Family history of ischemic heart disease and other diseases of the circulatory system
CPT/HCPCS: 93005 ×3; 85025 ×2; 80048 ×2; 36415 ×2; 83735; 82550 ×3; 85610; 80061; 80076; 84484 ×3; 80053; 83880; 70450; 70480; 76377; 71045; 70553; 96375; 96372; 96374; 99285; U0003; A9577; J0456 ×2; J1650; J2270; J7050 ×2; J2405 ×3; J2920; G0378 ×3; J8597

== ENCOUNTER 2023-05-12 11:58 | Observation (INO) | payer BC ==
--- OUTSIDE RECORDS SUMMARY | 2023-05-12 12:00 | XMS REPORT | Continuity of Care Document ---
:1970 Author Organization [facility] t Address [address] [place] [address] Care Team Providers Name Role Phone Jignesh Gutiérrez Attending Clinician Unavailable Payers Payer Name Policy Type Policy Number Effective Date Expiration Date S ource [employer] 6 [id number] Common Spiri t [facility] Problems Condition Condition Condition Status Onset Resolution Last Treating Co mments Source Name Details Category Date Date Treatment Clinician Date [id number] S/p Problem Commo n 9104 nephrectom Spirit y - 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 Allergies, Adverse Reactions, Alerts Allergy Allergy Status Severity Reaction(s) Onset Inactive Treating Comm ents Source Name Type Date Date Clinician Non-ster Non-ster Active hives Common oidal oidal Spirit anti-inf anti-inf - [facility] lammator lammator y agent y agent [facility] (FN) (FN) [facility] aspirin aspirin Active hives Common [facility] salicyla salicyla Active hives Common te (FN) te (FN) [facility] Shellfis Shellfis Active hives Common h (FN) h (FN) [facility] ibuprofe ibuprofe Active hives Common n n [facility] Social History Social Habit Start Date Stop Date Quantity Comments Source Sex Assigned At Com mon [facility] History of Tobacco Use Co mmon [facility] Smoking Status Start Date Stop Date Source Former Smoker 2022-08-14 00:00:00 2022-08-14 00:00:00 [facility] Medications Ordered Filled Start Stop Current Ordering Indication Dosage Frequency Signature Comments Components Source Medication Medication Date Date Medication? Clinician (SIG) Name Name Aisha Leonard No 1{drop_ QD Lumigan 0.01 % 0.01 % into_af 0.01 % fected_ eye_in_ the_eve gilbert} Rosuvastati Rosuvastati No 1{table QD Rosuvastat n Calcium 5 n Calcium 5 t} in Calcium MG MG 5 MG Famotidine Famotidine No 1{table QD Famotidine 20 MG 20 MG t_at_be 20 MG dtime_a s_neede d} Restasis Restasis No 1{drop_ BID Restasis 0.05 % 0.05 % into_af 0.05 % fected_ eye} Lisinopril Lisinopril No 1{table QD Lisinopril 40 MG 40 MG t} 40 MG Vital Signs Vital Name Observation Time Observation Value Comments Source height 2022-08-14 08:15:00 67 [in_i] [facility] weight 2022-08-14 08:15:00 198.8 [lb_av] Common [facility] temperature 2022-08-14 08:15:00 97.4 [degF] [facility] bmi 2022-08-14 08:15:00 31.13 kg/m2 [facility] oximetry 2022-08-14 08:15:00 99 % [facility] respiratory rate 2022-08-14 08:15:00 18 /min Comm on [facility] blood pressure 2022-08-14 08:15:00 146 mm[Hg] [facility] blood pressure 2022-08-14 08:15:00 79 mm[Hg] Common Spirit - diastolic [facility] Procedures This patient has no known procedures. Encounters Start End Encounter Admission Attending Care Care Encounter Source Date/Time Date/Time Type Type Clinicians Facility Department ID 2022-08-14 [id number] Common 07:57:02 Jignesh 10[address] [facility] 2022-08-14 2022-08-14 OFFICE [facility] [id number] Co mmon 00:00:00 00:00:00 VISIT [facility] PT LEVEL 3 - [facility] Results This patient has no known results.
[2023-05-12 12:56] LABS: Absolute Lymphocytes (CBC) 1.5 K/uL (0.7-4.9); Hematocrit 43.9 % (39.6-49.0); Lymphocytes % 30.9 % (15.3-44.8); MCV 94.3 fL (80-100); MPV 7.3 fL (7.6-11.3); Platelets 172 thou/uL (152-406); RBC Red Blood Cell Count 4.65 M/uL (4.33-5.43)
[2023-05-12 13:01] LABS: Protime INR 1.04
--- NOTE | 2023-05-12 13:11 | RAD REPORT ---
EXAM DESCRIPTION: CT - Head Brain Wo Cont - 05/12/2023 12:51 pm CLINICAL HISTORY: VISUAL DISTURBANCES Headache, drowsiness, double vision COMPARISON: <Comparisons> TECHNIQUE: All CT scans are performed using dose optimization technique as appropriate and may inclu de automated exposure control or mA/KV adjustment according to patient size. FINDINGS: No intracranial hemorrhage, hydrocephalus or extra-axial fluid collection.No areas of brai n edema or evidence of midline shift. The paranasal sinuses and mastoids are clear. Mild nonspecific mottled appearance to the calvarium is noted. IMPRESSION: No acute intracranial abnormality.
[2023-05-12 13:17] LABS: Albumin 3.6 g/dL (3.4-5.0); Bilirubin Direct 0.2 mg/dL (0-0.2); Bilirubin Indirect, Calculated 0.6 mg/dL (0.2-0.8); Bilirubin Total 0.8 mg/dL (0.2-1.0); Magnesium 2.1 mg/dL (1.6-2.4); Potassium 3.8 mEq/L (3.5-5.1); Protein, Total 7.9 g/dL (6.4-8.2)
[2023-05-12 13:19] LABS: Troponin High Sensitivity 172.9 pg/mL (<58.9)
--- NOTE | 2023-05-12 13:19 | RAD REPORT ---
EXAM DESCRIPTION: CT - Head angio - 05/12/2023 12:53 pm CLINICAL HISTORY: VISUAL DISTURBANCES Headache, drowsiness, double vision COMPARISON: <Comparisons> TECHNIQUE: CT angiography of the head was performed with MIPs. All CT scans are performed using dose optimization technique as appropriate and may include automated exposure control or mA/KV adjustment according to patient size. FINDINGS: No evidence of large vessel occlusion. No evidence of aneurysm is detected. No flow-limiti ng stenosis or vascular malformation identified. Antegrade flow is seen in the vertebral arteries. The left vertebral artery is mildly dominant. The visualized dural venous sinuses are patent. IMPRESSION: No significant flow abnormality is detected.
[2023-05-12] MEDS ORDERED: NA CHLORIDE 0.9% 1,000 ML ONE (13:28)
[2023-05-12] MEDS ORDERED: FOLIC ACID 5 MG/ML VIAL ONE (13:30)
--- NOTE | 2023-05-12 13:30 | RAD REPORT ---
EXAM DESCRIPTION: CT - Neck Angio - 05/12/2023 12:53 pm CLINICAL HISTORY: HEADACHE Headache, drowsiness, CVA symptomology COMPARISON: No comparisons TECHNIQUE: CT angiography of the neck vessels was performed with MIPs. All CT scans are performed using dose optimization technique as appropriate and may include automated exposure control or mA/KV adjustment according to patient size. FINDINGS: A left aortic arch is identified with normal three vessel configuration of the great vesse ls. No significant flow abnormality is seen of the common carotid bilaterally. No significant stenosis is identified involving the cervical segments of both internal carotid arteri es. Normal flow is seen within both vertebral arteries. IMPRESSION: No significant flow abnormality of the neck vessels is identified. NASCET criteria used. Mild 0-49% stenosis Moderate 50-69% stenosis Severe 70-99% stenosis
--- NOTE | 2023-05-12 13:55 | RAD REPORT ---
EXAM DESCRIPTION: MRI - Brain Wo Cont - 05/12/2023 1:17 pm CLINICAL HISTORY: VISUAL DISTURBANCES Headache, drowsiness COMPARISON: <Comparisons> TECHNIQUE: Multi-sequence, multiplanar MR imaging of the brain was performed without contrast. FINDINGS: No intracranial hemorrhage, hydrocephalus or extra-axial fluid collections.Minimal periven tricular chronic microvascular ischemia is present. No edema or shift of midline structures. No findi ngs to suspect brain mass. DWI is negative for acute CVA. Midline structures are normally formed. Mastoid air cells and paranasal sinuses are clear. IMPRESSION: No acute CVA or other acute intracranial process.
--- NOTE | 2023-05-12 13:57 | RAD REPORT ---
EXAM DESCRIPTION: RAD - Chest Single View - 05/12/2023 1:45 pm CLINICAL HISTORY: COUGH Chest pain. COMPARISON: <Comparisons> FINDINGS: Portable technique limits examination quality. Mild interstitial pulmonary edema. The heart is mildly enlarged in size. No displaced fractures. IMPRESSION: Mild CHF.
[2023-05-12] MEDS ORDERED: CLOPIDOGREL 75 MG TABLET ONE (14:32)
[2023-05-12] MEDS ORDERED: ACETAMINOPHEN 500 MG TAB ONE (14:32)
[2023-05-12] MEDS ORDERED: ENOXAPARIN 100 MG/ML SYR SQ ONE (14:33)
--- NOTE | 2023-05-12 15:08 | ER ---
Nurse's Notes [facility] Name: Jose Manuel Malin Jr Age: 52 yrs Sex: Male : 1970 Arrival Date: 05/12/2023 Time: 11:58 Bed 14 Private MD: Diagnosis: Diplopia;Essential (primary) hypertension;Headache;Other specified abnormal findings of blood chemistry-ELEVATED TROPONIN;Non ST elevation [place] Presentation: 05/12 12:12 Chief complaint: Patient states: Blurry vision since yesterday at 1800, VAN negative. jl7 [employer] Work[employer] sent to ER because vision is fine. Coronavirus screen: At this time, the client does not indicate any symptoms associated with coronavirus-19. Ebola Screen: No symptoms or risks identified at this time. Initial Sepsis Screen: Does the patient meet any 2 criteria? No. Patient's initial sepsis screen is negative. Does the patient have a suspected source of infection? No. Patient's initial sepsis screen is negative. Risk Assessment: Do you want to hurt yourself or someone else? Patient reports no desire to harm self or others. Onset of symptoms was May 11, 2023 at 18:00. 12:12 Method Of Arrival: Ambulatory [facility] 12:12 Acuity: HELGA 3 jl7 Triage Assessment: 12:21 General: Appears in no apparent distress. uncomfortable, Behavior is calm, cooperative, jl7 appropriate for age. Pain: Complains of pain in BORGES Pain currently is 5 out of 10 on a pain scale. Historical: - Allergies: 12:21 Aspirin; jl7 12:21 NSAIDS; jl7 - Home Meds: 15:21 losartan 100 mg oral tablet daily [Active]; carvedilol 6.25 mg oral tablet 2 times per hb day [Active]; Crestor 5 mg Oral tab [Active]; omeprazole 40 mg Oral cpDR 1 cap [Active]; 15:19 Crestor 5 mg Oral tab [Active]; omeprazole 40 mg Oral cpDR 1 cap [Active]; jl7 - PMHx: 12:21 Hypertensive disorder; BPH (Hypertensive disorder); jl7 - Immunization history:: Adult Immunizations up to date. - Social history:: Smoking status: Patient denies any tobacco usage or history of. - Family history:: not pertinent. Screenin:29 [facility] ED Fall Risk Assessment (Adult) Score/Fall Risk Level 0 - 2 = Low Risk nj1 Oriented to surroundings, Maintained a safe environment, Hourly rounding (assess needs \T\ fall precautionary measures) done. Abuse screen: Denies threats or abuse. Denies injuries from another. Nutritional screening: No deficits noted. Tuberculosis screening: No symptoms or risk factors identified. Assessment: 12:40 General: Appears in no apparent distress. uncomfortable, Behavior is calm, cooperative, nj1 appropriate for age. 12:40 Pain: Complains of pain in head Quality of pain is described as aching. Neuro: Level of nj1 Consciousness is awake, alert, obeys commands, Oriented to person, place, time, situation, Health Inspector are equal bilaterally Moves all extremities. Gait is steady, Speech is normal, Facial symmetry appears normal, Reports diplopia. Cardiovascular: Patient's skin is warm and dry. Respiratory: Airway is patent Respiratory effort is even, unlabored. 13:10 Reassessment: Not in room, in imaging. nj 13:29 Reassessment: Patient appears in no apparent distress at this time. No changes from nj1 previously documented assessment. Patient and/or family updated on plan of care and expected duration. Pain level reassessed. Patient is alert, oriented x 3, equal unlabored respirations, skin warm/dry/pink. 14:30 Reassessment: Patient appears in no apparent distress at this time. No changes from nj1 previously documented assessment. Patient and/or family updated on plan of care and expected duration. Pain level reassessed. Patient is alert, oriented x 3, equal unlabored respirations, skin warm/dry/pink. 16:00 Reassessment: Patient appears in no apparent distress at this time. Patient and/or nj1 family updated on plan of care and expected duration. Pain level reassessed. Patient is alert, oriented x 3, equal unlabored respirations, skin warm/dry/pink. Patient states feeling better. 17:00 Reassessment: Patient appears in no apparent distress at this time. No changes from nj1 previously documented assessment. Patient and/or family updated on plan of care and expected duration. Pain level reassessed. Patient is alert, oriented x 3, equal unlabored respirations, skin warm/dry/pink. 18:00 Reassessment: Patient appears in no apparent distress at this time. No changes from nj1 previously documented assessment. Patient and/or family updated on plan of care and expected duration. Pain level reassessed. Patient is alert, oriented x 3, equal unlabored respirations, skin warm/dry/pink. 19:19 Reassessment: Patient appears in no apparent distress at this time. No changes from [facility] previously documented assessment. Patient and/or family updated on plan of care and expected duration. Pain level reassessed. Patient is alert, oriented x 3, equal unlabored respirations, skin warm/dry/pink. Vital Signs: 12:12 BP 159 / 86; Pulse 65; Resp 17; Pulse Ox 99% ; Weight 90.72 kg; Height 5 ft. 7 in. ; jl7 Pain 5/10; 13:29 BP 130 / 70; Pulse 62; Resp 19; Pulse Ox 97% on R/A; Pain 5/10; nj1 14:30 BP 133 / 76; Pulse 56; Resp 16; Pulse Ox 100% ; Pain 5/10; nj1 15:30 BP 131 / 72; Pulse 54; Resp 14; Pulse Ox 100% on R/A; Pain 0/10; nj1 17:00 BP 123 / 73; Pulse 48; Resp 13; Pulse Ox 100% on R/A; nj1 18:47 BP 123 / 73; Pulse 63; Resp 18; Pulse Ox 99% on R/A; nj1 12:12 Body Mass Index 31.32 (90.72 kg, 170.18 cm) jl7 12:12 Pain Scale: Adult jl7 13:29 Pain Scale: Adult nj1 14:30 Pain Scale: Adult nj1 15:30 Pain Scale: Adult nj1 Sumner Coma Score: 15:23 Eye Response: spontaneous(4). Motor Response: obeys commands(6). Verbal Response: anastacia oriented(5). Total: 15. NIH Stroke Scale Scores: 15:23 NIHSS Score: 0 anastacia ED Course: 12:02 Patient arrived in ED. kj1 12:05 Matt Mock MD is Attending Physician. anastacia 12:08 Aletha Dumont, RN is Primary Nurse. nj1 12:16 EKG done, by ED staff, reviewed by Matt Mock MD. em1 12:17 Inserted saline lock: 20 gauge in left antecubital area, using aseptic technique. Blood mb9 collected. 12:17 Arm band placed on. mb9 12:21 Triage completed. jl7 12:53 CT Head Brain wo Cont In Process Unspecified. EDMS 12:54 CT Head Angio In Process Unspecified. EDMS 12:54 CT Neck Angio In Process Unspecified. EDMS 13:18 Brain Wo Cont In Process Unspecified. EDMS 13:29 Patient has correct armband on for positive identification. Bed in low position. Call nj1 light in reach. Side rails up X 1. Adult w/ patient. Provided Education on: Call light, fall precautions. 13:47 XRAY Chest (1 view) In Process Unspecified. EDMS 15:05 Jignesh Gutiérrez MD is Hospitalizing Provider. [facility] 19:17 No provider procedures requiring assistance completed. Patient admitted, IV remains in nj1 place. Administered Medications: 13:28 Drug: NS 0.9% IV 1000 ml IV at 1 bolus Per protocol; 1000 mL bolus Route: IV; Rate: 1 nj1 bolus; Site: left antecubital; 14:30 Follow up: Response: No adverse reaction; IV Status: Completed infusion; IV Intake: nj1 1000ml 15:00 Follow up: Response: No adverse reaction; IV Status: Completed infusion; IV Intake: nj1 1000ml 13:28 Drug: foLIC Acid IVPB 1 mg IVPB once Route: IVPB; Site: left antecubital; nj1 13:28 Follow up: IV Status: Completed infusion nj1 14:32 Follow up: Response: No adverse reaction nj1 18:46 Follow up: Response: No adverse reaction nj1 14:30 Drug: Clopidogrel PO 75 mg PO once Route: PO; nj1 18:46 Follow up: Response: No adverse reaction nj1 14:30 Drug: Enoxaparin Sub-Q 90 mg Sub-Q once Route: Sub-Q; Site: abdomen; nj1 18:46 Follow up: Response: No adverse reaction nj1 14:30 Drug: Acetaminophen PO 1000 mg PO once Route: PO; nj1 Medication: 19:18 VIS not applicable for this client. nj1 Intake: 14:30 IV: 1000ml; Total: 1000ml. nj1 15:00 IV: 1000ml; Total: 2000ml. nj1 Outcome: 15:08 Decision to Hospitalize by Provider. anastacia 19:17 Admitted to Med/surg accompanied by tech, family with patient, via stretcher, room 212, nj1 Report called to Licha NATHAN 19:17 Condition: stable 19:17 Instructed on the need for admit, 19:19 Patient left the ED. nj1 NIH Stroke Scale - NIH Stroke Score Date: 05/12/2023 Time: 15:23 Total Score = 0 10. Dysarthria (speech clarity - read or repeat words) - 0(Normal) 11. Extinction and Inattention (visual/tactile/auditory/spatial/personal) - 0(No abnormality) 1a. Level of Consciousness (LOC) - 0(Alert) 1b. Level of Consciousness (LOC) (Month \T\ Age) - 0(Both) 1c. LOC Commands (Open \T\ Closes Eyes/Call Worker Person) - 0(Both) 2. Best Gaze (Lateral Gaze Paresis) - 0(Normal) 3. Visual Field Loss - 0(No visual loss) 4. Facial Palsy - 0(Normal) 5a. Left Arm: Motor (10-second hold) - 0(No drift) 5b. Right Arm: Motor (10-second hold) - 0(No drift) 6a. Left Leg: Motor (5-second hold - always test supine) - 0(No drift) 6b. Right Leg: Motor (5-second hold - always test supine) - 0(No drift) 7. Limb Ataxia (finger/nose \T\ heel/avalos - test with eyes open) - 0(Absent) 8. Sensory Loss (pinprick arms/legs/face) - 0(Normal) 9. Best Language: Aphasia (description/naming/reading) - 0(No aphasia) Initials: anastacia Signatures: Dispatcher [employer] EDMS Matt Mock MD MD cha Martinez, Eric em1 Yumiko Gonzalez RN RN Tammy Amanda RN RN jl7 Claritza Devlin1 Yolande Frances RN RN mb9 Aletha Dumont RN RN nj1 Corrections: (The following items were deleted from the chart) 15:21 12:21 Home Meds: losartan oral; [facility] 15:21 12:21 Home Meds: carvedilol oral; [facility] hb 18:49 15:30 BP 131 / 72; Pulse 54bpm; Resp 14bpm; Pulse Ox 100% RA; nj1 nj1
--- NOTE | 2023-05-12 15:08 | EDPHYS ---
Physician Documentation [facility] Name: Jose Manuel Malin Jr Age: 52 yrs Sex: Male : 1970 Arrival Date: 05/12/2023 Time: 11:58 Bed 14 Private MD: TARAN Physician Matt Mock HPI: 05/12 14:48 This 52 yrs old Male presents to ER via Ambulatory with complaints of DOUBLE anastacia VISION. 14:48 The patient is experiencing double vision. Onset: The symptoms/episode began/occurred 2 anastacia day(s) ago. Duration: the symptoms are intermittent. Aggravated by nothing. Alleviated by nothing. Associated signs and symptoms: Pertinent positives: None. The patient presents with dizziness, generalized weakness, lightheadedness. Context: occurred at an unknown location, just prior to the episode the patient experienced lightheadedness, DOUBLE VISION. Modifying factors: The symptoms are alleviated by nothing, the symptoms are aggravated by nothing. Associated signs and symptoms: Pertinent positives: headache. Historical: - Allergies: 12:21 Aspirin; jl7 12:21 NSAIDS; jl7 - Home Meds: 15:21 losartan 100 mg oral tablet daily [Active]; carvedilol 6.25 mg oral tablet 2 times per hb day [Active]; Crestor 5 mg Oral tab [Active]; omeprazole 40 mg Oral cpDR 1 cap [Active]; 15:19 Crestor 5 mg Oral tab [Active]; omeprazole 40 mg Oral cpDR 1 cap [Active]; jl7 - PMHx: 12:21 Hypertensive disorder; BPH (Hypertensive disorder); jl7 - Immunization history:: Adult Immunizations up to date. - Social history:: Smoking status: Patient denies any tobacco usage or history of. - Family history:: not pertinent. ROS: 14:48 Constitutional: Negative for fever, chills, and weight loss, ENT: Negative for injury, anastacia pain, and discharge, Neck: Negative for injury, pain, and swelling, Cardiovascular: Negative for chest pain, palpitations, and edema, Respiratory: Negative for shortness of breath, cough, wheezing, and pleuritic chest pain, Abdomen/GI: Negative for abdominal pain, nausea, vomiting, diarrhea, and constipation, Back: Negative for injury and pain, : Negative for injury, bleeding, discharge, and swelling, MS/Extremity: Negative for injury and deformity, Skin: Negative for injury, rash, and discoloration, Neuro: Negative for headache, weakness, numbness, tingling, and seizure, Psych: Negative for depression, anxiety, suicide ideation, homicidal ideation, and hallucinations, Allergy/Immunology: Negative for hives, rash, and allergies, Endocrine: Negative for neck swelling, polydipsia, polyuria, polyphagia, and marked weight changes, Hematologic/Lymphatic: Negative for swollen nodes, abnormal bleeding, and unusual bruising, 14:48 Eyes: Positive for visual disturbance, DIPLOPIA, Exam: 14:48 Constitutional: This is a well developed, well nourished patient who is awake, alert, anastacia and in no acute distress. Head/Face: Normocephalic, atraumatic. Eyes: Pupils equal round and reactive to light, extra-ocular motions intact. Lids and lashes normal. Conjunctiva and sclera are non-icteric and not injected. Cornea within normal limits. Periorbital areas with no swelling, redness, or edema. ENT: Nares patent. No nasal discharge, no septal abnormalities noted. Tympanic membranes are normal and external auditory canals are clear. Oropharynx with no redness, swelling, or masses, exudates, or evidence of obstruction, uvula midline. Mucous membranes moist. Neck: Trachea midline, no thyromegaly or masses palpated, and no cervical lymphadenopathy. Supple, full range of motion without nuchal rigidity, or vertebral point tenderness. No Meningismus. Chest/axilla: Normal chest wall appearance and motion. Nontender with no deformity. No lesions are appreciated. Cardiovascular: Regular rate and rhythm with a normal S1 and S2. No gallops, murmurs, or rubs. Normal PMI, no JVD. No pulse deficits. Respiratory: Lungs have equal breath sounds bilaterally, clear to auscultation and percussion. No rales, rhonchi or wheezes noted. No increased work of breathing, no retractions or nasal flaring. Abdomen/GI: Soft, non-tender, with normal bowel sounds. No distension or tympany. No guarding or rebound. No evidence of tenderness throughout. Back: No spinal tenderness. No costovertebral tenderness. Full range of motion. Male : Normal genitalia with no discharge or lesions. Skin: Warm, dry with normal turgor. Normal color with no rashes, no lesions, and no evidence of cellulitis. MS/ Extremity: Pulses equal, no cyanosis. Neurovascular intact. Full, normal range of motion. Neuro: Awake and alert, GCS 15, oriented to person, place, time, and situation. Cranial nerves II-XII grossly intact. Motor strength 5/5 in all extremities. Sensory grossly intact. Cerebellar exam normal. Normal gait. Psych: Awake, alert, with orientation to person, place and time. Behavior, mood, and affect are within normal limits. Vital Signs: 12:12 BP 159 / 86; Pulse 65; Resp 17; Pulse Ox 99% ; Weight 90.72 kg; Height 5 ft. 7 in. ; 7 Pain 5/10; 13:29 BP 130 / 70; Pulse 62; Resp 19; Pulse Ox 97% on R/A; Pain 5/10; nj1 14:30 BP 133 / 76; Pulse 56; Resp 16; Pulse Ox 100% ; Pain 5/10; nj1 15:30 BP 131 / 72; Pulse 54; Resp 14; Pulse Ox 100% on R/A; Pain 0/10; nj1 17:00 BP 123 / 73; Pulse 48; Resp 13; Pulse Ox 100% on R/A; nj1 18:47 BP 123 / 73; Pulse 63; Resp 18; Pulse Ox 99% on R/A; nj1 12:12 Body Mass Index 31.32 (90.72 kg, 170.18 cm) [facility] 12:12 Pain Scale: Adult [facility] 13:29 Pain Scale: Adult nv1 14:30 Pain Scale: Adult nv1 15:30 Pain Scale: Adult nj1 NIH Stroke Scale Scores: 15:23 NIHSS Score: 0 anastacia Kishore Coma Score: 15:23 Eye Response: spontaneous(4). Motor Response: obeys commands(6). Verbal Response: anastacia oriented(5). Total: 15. MDM: 12:05 Patient medically screened. anastacia 14:52 Differential diagnosis: cardiac arrhythmia, generalized weakness, GI bleed, anastacia hypovolemia, idiopathic dizziness, near-syncope. Data reviewed: vital signs, nurses notes, lab test result(s), EKG, radiologic studies, CT scan, MRI. Consideration of Admission/Observation Patient was admitted/placed on observation. Escalation of care including admission/observation considered. I considered the following discharge prescriptions or medication management in the emergency department Medications were administered in the Emergency Department. See MAR. Independent interpretation of the following test(s) in the Emergency Department EKG: See my EKG interpretation above. Test considered but Not performed: CT: NO CT DISSECTION. 05/12 12:37 Order name: Basic Metabolic Panel; Complete Time: 13:58 [facility] 05/12 12:37 Order name: CBC with Diff; Complete Time: 13:58 [facility] 05/12 12:37 Order name: LFT's; Complete Time: 13:58 [facility] 05/12 12:37 Order name: Magnesium; Complete Time: 13:58 [facility] 05/12 12:37 Order name: NT PRO-BNP; Complete Time: 13:58 [facility] 05/12 12:37 Order name: PT-INR; Complete Time: 13:58 [facility] 05/12 12:37 Order name: Troponin HS; Complete Time: 13:58 [facility] 05/12 12:37 Order name: Urinalysis w/ reflexes [facility] 05/12 13:08 Order name: CREATININE WHOLE BLOOD; Complete Time: 13:58 [facility] 05/12 12:37 Order name: XRAY Chest (1 view); Complete Time: 13:58 [facility] 05/12 12:37 Order name: CT Head Brain wo Cont; Complete Time: 13:58 [facility] 05/12 12:37 Order name: CT Head Angio; Complete Time: 13:58 [facility] 05/12 12:37 Order name: CT Neck Angio; Complete Time: 13:58 [facility] 05/12 13:08 Order name: Brain Wo Cont; Complete Time: 13:58 [facility] 05/12 12:37 Order name: EKG; Complete Time: 12:38 [facility] 05/12 15:18 Order name: CONS Physician Consult [facility] 05/12 15:18 Order name: CONS Physician Consult [facility] 05/12 12:37 Order name: Cardiac monitoring; Complete Time: 12:47 [facility] 05/12 12:37 Order name: EKG - Nurse/Tech; Complete Time: 12:48 [facility] 05/12 12:37 Order name: IV Saline Lock; Complete Time: 12:48 [facility] 05/12 12:37 Order name: Labs collected and sent; Complete Time: 12:48 [facility] 05/12 12:37 Order name: O2 Per Protocol; Complete Time: 12:48 [facility] 05/12 12:37 Order name: O2 Sat Monitoring; Complete Time: 12:48 anastacia Administered Medications: 13:28 Drug: NS 0.9% IV 1000 ml IV at 1 bolus Per protocol; 1000 mL bolus Route: IV; Rate: 1 nj1 bolus; Site: left antecubital; 14:30 Follow up: Response: No adverse reaction; IV Status: Completed infusion; IV Intake: nj1 1000ml 15:00 Follow up: Response: No adverse reaction; IV Status: Completed infusion; IV Intake: nj1 1000ml 13:28 Drug: foLIC Acid IVPB 1 mg IVPB once Route: IVPB; Site: left antecubital; nj1 13:28 Follow up: IV Status: Completed infusion nj1 14:32 Follow up: Response: No adverse reaction nj1 18:46 Follow up: Response: No adverse reaction nj1 14:30 Drug: Clopidogrel PO 75 mg PO once Route: PO; nj1 18:46 Follow up: Response: No adverse reaction nj1 14:30 Drug: Enoxaparin Sub-Q 90 mg Sub-Q once Route: Sub-Q; Site: abdomen; nj1 18:46 Follow up: Response: No adverse reaction nj1 14:30 Drug: Acetaminophen PO 1000 mg PO once Route: PO; nj1 Disposition Summary: 05/12/23 15:08 Hospitalization Ordered Notes: Hospitalization Status: Observation anastacia Provider: Jignesh Gutiérrez cha Condition: Fair anastacia Problem: new anastacia Symptoms: have improved anastacia Bed/Room Type: Standard anastacia Location: Telemetry/MedSurg (observation)(05/12/23 18:33) bd Room Assignment: Formerly named [facility](05/12/23 18:33) bd Diagnosis - Diplopia anastacia - Essential (primary) hypertension anastacia - Headache anastacia - Other specified abnormal findings of blood chemistry - ELEVATED TROPONIN anastacia - Non ST elevation CA anastacia Forms: - Medication Reconciliation Form anastacia - SBAR form anastacia - Leadership Thank You Letter anastacia NIH Stroke Scale - NIH Stroke Score Date: 05/12/2023 Time: 15:23 Total Score = 0 10. Dysarthria (speech clarity - read or repeat words) - 0(Normal) 11. Extinction and Inattention (visual/tactile/auditory/spatial/personal) - 0(No abnormality) 1a. Level of Consciousness (LOC) - 0(Alert) 1b. Level of Consciousness (LOC) (Month \T\ Age) - 0(Both) 1c. LOC Commands (Open \T\ Closes Eyes/Sales And Service Specialist) - 0(Both) 2. Best Gaze (Lateral Gaze Paresis) - 0(Normal) 3. Visual Field Loss - 0(No visual loss) 4. Facial Palsy - 0(Normal) 5a. Left Arm: Motor (10-second hold) - 0(No drift) 5b. Right Arm: Motor (10-second hold) - 0(No drift) 6a. Left Leg: Motor (5-second hold - always test supine) - 0(No drift) 6b. Right Leg: Motor (5-second hold - always test supine) - 0(No drift) 7. Limb Ataxia (finger/nose \T\ heel/avalos - test with eyes open) - 0(Absent) 8. Sensory Loss (pinprick arms/legs/face) - 0(Normal) 9. Best Language: Aphasia (description/naming/reading) - 0(No aphasia) Initials: anastacia Signatures: Dispatcher [employer] EDMS Concetta Garcia Corey, MD MD cha Baxter, Heather, RN RN Tammy Amanda RN RN jl7 Aletha Dumont RN RN nj1 Corrections: (The following items were deleted from the chart) 13:08 12:38 MR STROKE PROTOCOL+MRI.RAD.BRZ ordered. EDOK EDMS 15:21 12:21 Home Meds: losartan oral; jl7 hb 15:21 12:21 Home Meds: carvedilol oral; jl7 hb 16:29 15:08 Telemetry/MedSurg (observation) anastacia jl7 16:29 15:08 anastacia messer7 18:33 16:29 [facility] ER HOLD jl7 bd 18:33 16:29 ERHOLD- jl7 bd
[2023-05-12 16:21] LABS: Specific Gravity 1.019 (1.005-1.030); Urine Bilirubin NEGATIVE (Negative); Urine Blood Negative (Negative); Urine Clarity Clear (Clear); Urine Color Colorless (Yellow); Urine Glucose NEGATIVE (Negative); Urine Protein NEGATIVE (Negative); Urine Urobilinogen Normal (Normal); Urine pH 7.5 (5.0-7.0)
[2023-05-12] MEDS ORDERED: ONDANSETRON 4 MG/2 ML VIAL IV PRN (18:16)
[2023-05-12] MEDS ORDERED: MORPHINE 2 MG/ML SYR IV PRN (18:27)
[2023-05-12] MEDS: carvediloL 6.25 MG TAB PO SCH (20:30)
[2023-05-12] MEDS: FAMOTIDINE 20 MG/2 ML VIAL IV SCH (20:30)
[2023-05-12] MEDS: ENOXAPARIN 100 MG/ML SYR SQ SCH ×2 (20:31→21:00)
[2023-05-12] MEDS: ROSUVASTATIN 5 MG TAB PO SCH (21:00)
[2023-05-12 23:13] VITALS: BMI 32.0
[2023-05-12] MEDS: ACETAMINOPHEN 325 MG TABLET PO PRN (23:14)
[2023-05-13] MEDS: ENOXAPARIN 100 MG/ML SYR SQ SCH ×2 (05:06→15:40)
[2023-05-13 06:38] LABS: Absolute Lymphocytes (CBC) 1.8 K/uL (0.7-4.9); Hematocrit 42.8 % (39.6-49.0); Lymphocytes % 35.4 % (15.3-44.8); MCV 93.2 fL (80-100); Platelets 160 thou/uL (152-406); RBC Red Blood Cell Count 4.59 M/uL (4.33-5.43)
[2023-05-13] MEDS: LOSARTAN POTASSIUM 50 MG TABLET PO SCH (08:32)
[2023-05-13] MEDS: FAMOTIDINE 20 MG/2 ML VIAL IV SCH ×2 (08:32→21:02)
[2023-05-13] MEDS: carvediloL 6.25 MG TAB PO SCH ×2 (08:32→20:53)
[2023-05-13] MEDS: CLOPIDOGREL 75 MG TABLET PO SCH (08:32)
[2023-05-13] MEDS: ACETAMINOPHEN 325 MG TABLET PO PRN ×2 (09:25→20:52)
[2023-05-13] MEDS: FOLIC ACID 1 MG in NA CHLORIDE 0.9% 50 ML IV SCH (10:17)
[2023-05-13] MEDS ORDERED: ACYCLOVIR 400 MG TABLET PO SCH (15:00)
[2023-05-13] MEDS ORDERED: predniSONE 20 MG TAB PO ONE ×2 (15:00→21:00)
[2023-05-13] MEDS ORDERED: MIDAZOLAM HCL 2 MG/2 ML INJ ONE (15:26)
[2023-05-13] MEDS ORDERED: VERAPAMIL HCL 10 MG/4 ML VIAL IV ONE (15:26)
[2023-05-13] MEDS ORDERED: HEPARIN 5000 UNIT/ML 1 ML VIAL ONE (15:26)
[2023-05-13] MEDS ORDERED: HEPA 1000U/500MLS 2,000 UNIT/1,000 ML BAG IV ONE (15:26)
[2023-05-13] MEDS ORDERED: FENTANYL CITR 100 MCG/2 ML ONE (15:26)
[2023-05-13] MEDS ORDERED: CLOPIDOGREL 75 MG TABLET ONE (15:27)
[2023-05-13] MEDS ORDERED: HEPARIN 10,000 UNIT/10 ML VIAL IV ONE (15:27)
[2023-05-13] MEDS ORDERED: ASPIRIN 325 MG TAB ONE (15:27)
[2023-05-13] MEDS ORDERED: TICAGRELOR 90 MG TABLET PO ONE (15:27)
[2023-05-13] MEDS ORDERED: ATROPINE SULF 1 MG/10 ML SYR IV ONE (15:28)
[2023-05-13] MEDS ORDERED: LIDOCAINE 1% MPF 30 ML VIAL ONE (15:28)
[2023-05-13] MEDS ORDERED: NA CHLORIDE 0.9% 500 ML ONE (16:07)
[2023-05-13] MEDS ORDERED: FAMOTIDINE 20 MG TAB ONE (16:12)
[2023-05-13] MEDS ORDERED: DIPHENHYDRAMINE 50 MG/ML VIAL ONE (16:13)
[2023-05-13] MEDS ORDERED: METHYLPREDNISOLONE 125 MG INJ ONE (16:13)
--- NOTE | 2023-05-13 18:06 | EKG ---
Test Date: 2023-05-12 Test Time: 12:13:18 Associate Partner: TREV MEASUREMENT RESULTS: Intervals: Rate: 65 [place]: 184 QRSD: 92 QT: 390 QTc: 405 [place]: P: 39 AZ: 184 QRS: 35 T: 52 INTERPRETIVE STATEMENTS: Normal sinus rhythm Normal ECG Compared to ECG 08/10/2021 02:23:12 No significant changes Electronically Signed On 05-13-23 18:03:34 CDT by Rolf Buchanan
[2023-05-13] MEDS: ROSUVASTATIN 5 MG TAB PO SCH (20:51)
[2023-05-13] MEDS: ACYCLOVIR 400 MG TABLET PO SCH (21:01)
[2023-05-14 04:40] VITALS: TEMP 97.3
[2023-05-14] MEDS: ENOXAPARIN 100 MG/ML SYR SQ SCH (05:00)
--- NOTE | 2023-05-14 06:23 | CON ---
Reason For Consultation: Consultation called because of double vision. History Of Present Illness: Mr. Malin is a 52-year-old right-handed patient who had relativ uriel sudden onset of double vision last Thursday. The patient stated he had difficulty moving his eye , the right eye and at times if she looks down or to the left, he might have double vision. At times , it seems side by side, but maybe one above the other. He was forced to close the right eye so he c an have a single object in view. At [facility], his brain MRI done on 05/12/2023 showed no acute stroke or other acute intracranial abnormalities. There was no suspicious mass. No evidence o f structural or midline abnormalities. He had mild or minimal periventricular chronic small vessel i schemic disease. The patient's did note he had Vaca palsy affecting the right side several year s ago. Those symptoms resolved within a week. Past Medical History: As noted above including hypertension, GE reflux, dyslipidemia, and Vaca palsy along with prostate hypertrophy. Allergies: NSAIDS AND ASPIRIN. Medications: Losartan 100 mg daily, carvedilol 6.25 mg 2 tablets daily, Crestor 5 mg daily, omeprazo le 40 mg daily. Family History: Noncontributory. Social History: No alcohol, tobacco, or IV drug use. 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 Past Surgical History: None. Review of Systems: Denies any recent fevers or chills, nausea, vomiting, myalgias, arthralgias, rash, headache, weight c hange. No psychiatric complaints. No gastrointestinal or genitourinary complaints. No dermatologic al complaints. No other positives such as weight change or so on a 10-point systems review. He does have the double vision as noted. Physical Examination: Vital Signs: Blood pressure 142/73, pulse 61, respiratory rate of 16, temperature 98.0, O2 saturatio n 98%. Weight 200 pounds, height 5 feet, 7 inches BMI 31.3. GENERAL: Mr. Malin is resting in bed. His is at bedside. In general, he is normocephalic, atraumatic. Sclerae anicteric. Oropharynx pink and moist. Neck: Supple. Chest: Clear. Heart: Regular. Extremities: No clubbing, cyanosis, or edema. Neurological: His right eye is somewhat externally rotated. However, looking to the right can tend to have the convergent vision with a single object, although at times it appears double. When lookin g to the left, the right eye does cross midline, but has some difficulty getting properly over to the left. The findings are consistent with a partial right medial rectus palsy. Otherwise, he has no f ocal cranial nerve deficits including cranial nerve 7 with good facial excursions bilaterally. Sensa tion is intact in the face in all distributions V1, V2, V3. Tongue and palate midline. His motor ex amination in the upper and lower extremities are 5/5 proximally and distally. Sensory exam intact in upper and lower extremities. Coordination intact in the upper and lower extremities. Reflexes symm etric. Gait has good stance, stride, and arm swing. Laboratory Studies: Complete blood count with differential is completely normal. Coagulation panel is normal. Chemistries all unremarkable. His blood sugars range from 105 to 139, calcium 8.5, magne sium 2.1. Liver function studies show slightly elevated ALT of 75, alkaline phosphatase low at 41. Troponin 1 is elevated at 174. He is being followed by Cardiology. Albumin 3.6. Urinalysis unremar kable except pH 7.5. He has CT angiogram of the head and neck. Those studies showed no significant flow abnormalities in the neck blood vessels and no significant flow abnormalities within the [place]. The left vertebral artery is mildly dominant and the arteries all have antegrade flow. H is electrocardiogram showed normal sinus rhythm and is a normal study. Assessment: Mr. Malin is a 52-year-old patient with a partial right third nerve palsy. The etiol ogy is possibly related to viral reasons, which may be similar to the seventh nerve palsy the patient experienced a few years ago. He does not have diabetes . However, he did have his [place] actually renal cell carcinoma and has had nephrectomy and lives with 1 kidney. It is possible t here is a paraneoplastic reason for his right third nerve palsy. Plan: 1.Plavix 75 mg daily. Control his hypertension with current antihypertensive medications as well as continuing his statin. 2.We will give a course of steroids 60 mg prednisone for 5 days. 3.We will give acyclovir 400 mg 3 times daily. 4.Patient may be discharged home. Follow up in Dr. Lopez's clinic within a month. LAURI Voice ID: [id number] Report ID: [id number]
[2023-05-14 08:49] VITALS: O2SAT 96
[2023-05-14] MEDS: LOSARTAN POTASSIUM 50 MG TABLET PO SCH (08:50)
[2023-05-14] MEDS: CLOPIDOGREL 75 MG TABLET PO SCH (08:51)
[2023-05-14] MEDS: carvediloL 6.25 MG TAB PO SCH (08:51)
[2023-05-14] MEDS: ACYCLOVIR 400 MG TABLET PO SCH ×2 (08:52→11:06)
[2023-05-14] MEDS: FAMOTIDINE 20 MG/2 ML VIAL IV SCH (08:52)
[2023-05-14] MEDS: ACETAMINOPHEN 325 MG TABLET PO PRN (08:54)
[2023-05-14] MEDS: FOLIC ACID 1 MG in NA CHLORIDE 0.9% 50 ML IV SCH (09:01)
--- NOTE | 2023-05-14 09:49 | EKG ---
Test Date: 2023-05-13 Test Time: 08:31:40 [employer]icatessen Slicer: LUIS ENRIQUE MEASUREMENT RESULTS: Intervals: Rate: 48 CO: 180 QRSD: 88 QT: 432 QTc: 385 [place]: P: 4 CO: 180 QRS: 19 T: 41 INTERPRETIVE STATEMENTS: Marked sinus bradycardia Abnormal ECG Compared to ECG 05/12/2023 12:13:18 Sinus rhythm no longer present Electronically Signed On 05-14-23 09:46:26 CDT by Rolf Buchanan
[2023-05-14 10:17] VITALS: BP 141/69
--- NOTE | 2023-05-14 15:35 | PN ---
Date of Progress Note: 05/14/2023 Subjective: Seen at bedside. Doing clinically well. Does not have any chest pain. No shortness of breath, orthopnea, cough. No nausea, vomiting, diarrhea. All other systems reviewed are negative. Objective: Vital Signs: Reviewed. Head and Neck: Pupils are equal, reactive to light. Intact eye movements. No JVD. No cervical lym phadenopathy. Neck is supple. Thyroid is not enlarged. Lungs: Clear to auscultation bilaterally. No rhonchi, wheezing, or crackles. No accessory muscle u se. Heart: Regular rate and rhythm. No extra sounds. Abdomen: Soft, nontender. Bowel sounds positive. No organomegaly. No masses or hernia. No rigidi ty or rebound. Extremities: No edema clubbing, or cyanosis. Intact pulses. Skin: No rash or nodule. Neurologic: Alert, awake, oriented x3. No acute focal deficits appreciated. Investigations: Labs were reviewed. Assessment And Recommendations: 1.Elevated troponin. This is demand ischemia. Coronary angiogram was normal. Access site has no c omplication. No further cardiac workup is needed. The patient can be released and follow up as an o utpatient. 2.Hypertension. Blood pressure is controlled. Cardiology will sign off. SR/MODL Voice ID: [id number] Report ID: [id number]
--- NOTE | 2023-05-14 15:50 | CON ---
Date of Consultation: 05/13/2023 Reason For Consultation: Elevated troponin. History Of Present Illness: This is a 52-year-old male who has been having some neurological symptom s and was told that he probably has a migraine and he has been having double vision. Denies having a ny chest pain or shortness of breath with workup in the emergency room. Troponin was elevated hence I was consulted. Patient denies having any chest pain. Past Medical History: Dyslipidemia, Vaca palsy, acid reflux. Medications: Refer reconciliation sheet for detailed list. Allergies: NSAIDS AND ASPIRIN. Family History: No mature coronary artery disease or cancer. Social History: Does not smoke or drink. Does not use any drugs. Review of Systems: All systems reviewed and are negative except as mentioned in HPI. Physical Examination: Vital Signs: Reviewed. Head and Neck: Pupils are equal, reactive to light. Intact eye movements. No JVD. No cervical lym phadenopathy. Neck is supple. Thyroid is not enlarged. Lungs: Clear to auscultation bilaterally. No rhonchi, wheezing, or crackles. No accessory muscle u se. Heart: Regular rate and rhythm. No extra sounds. Abdomen: Soft, nontender. Bowel sounds positive. No organomegaly. No masses or hernia. No rigidi ty or rebound. Extremities: No edema, clubbing, cyanosis. Intact pulses. Skin: No rash. Neurologic: Alert, awake, oriented x3. No acute focal deficits appreciated. Investigations: Troponin 172 and 174. BUN is 16, creatinine 1.2. Assessment/recommendations: 1.Elevated troponin, unexplained. We will plan for coronary angiogram to identify the coronary ford adela and plan for percutaneous coronary intervention if needed. 2.Hypertension. Blood pressure is controlled. Continue current management. SR/MODL Voice ID: [id number] Report ID: [id number]
--- NOTE | 2023-05-14 18:50 | OP ---
Date of Procedure: 05/13/2023 Surgeon: MARION WELCH Procedures Performed: 1.Selective coronary angiogram. 2.Left heart catheterization. Indication: Ylg-BE-gyhcitluv myocardial infarction. Access: Right radial artery 6-Slovak closed with TR band. Complications: None. Bleeding: Less than 20 mL. Description Of Procedure: After risks, benefits, and alternatives were explained, patient agreed to procedure and signed informed consent. Patient was brought to the cardiac catheterization laboratory , prepped and draped in usual sterile fashion and then I accessed right radial artery using pediatric micropuncture kit and a 6-Slovak slender sheath and took 5-Slovak Nedrow 4 catheter into the aortic r oot over a J-wire, engaged left main and then took standard views and then right coronary artery, too k standard views and the catheter was pushed over the wire into the LV, measured the LVEDP. Pullback did not record any gradient. Then, I removed the catheter and sheath, placed TR band with good hemo stasis. Findings: 1.Left main: Large and normal. 2.LAD: Large and normal. Normal diagonal branches. 3.Left circumflex is normal. Normal OM branches. 4.RCA: Very large, aneurysmal slightly, and dominant, and normal. 5.Normal LVEDP at 5 mmHg. Conclusion: 1.Normal coronary arteries. 2.Normal LVEDP. Plan: Medical management. SR/MODL Voice ID: [id number] Report ID: [id number]
--- NOTE | 2023-05-14 19:01 | PN ---
Date of Progress Note: 05/13/2023 Subjective: The patient is seen shortly before catheterization. Other than the diplopia which he sa ys was nerve related rather than vascular, which is confirmed by his negative cardiova scular workup to date, awaiting the catheterization. Other than the diplopia, the patient states he is basically asymptomatic, although his says he has had some episodes of chest discomfort in the left anterior chest on occasion. HR/MODL Voice ID: [id number] Report ID: [id number]
--- NOTE | 2023-05-14 19:05 | PN ---
Date of Progress Note: 05/14/2023 The patient has been cleared for discharge by Cardiology. Apparently had a negative catheterization. Some question of x-ray report as far as pathology is concerned, and the patient will be seen in my office in 1 week. HR/MODL Voice ID: [id number] Report ID: [id number]
== END 2023-05-14 10:45 | disposition home or self-care (01) ==
LOC: ER 11:58 → ERHOLD 15:12 → 2ND 19:10
PROVIDERS: ADMIT Family Medicine; ATTEND Family Medicine
DX: I24.89 Other forms of acute ischemic heart disease (principal); H53.2 Diplopia; H49.01 Third [oculomotor] nerve palsy, right eye; I25.41 Coronary artery aneurysm; R79.89 Other specified abnormal findings of blood chemistry; I10 Essential (primary) hypertension; E78.5 Hyperlipidemia, unspecified; K21.9 Gastro-esophageal reflux disease without esophagitis; G51.0 Bell's palsy; N40.0 Benign prostatic hyperplasia without lower urinary tract symptoms; Z79.899 Other long term (current) drug therapy; Z88.6 Allergy status to analgesic agent; Z88.8 Allergy status to other drugs, medicaments and biological substances; Z91.013 Allergy to seafood; Z85.53 Personal history of malignant neoplasm of renal pelvis; Z90.5 Acquired absence of kidney
CPT/HCPCS: 96361; 93005 ×2; 85025 ×2; 80048 ×2; 36415; 83735; 85610; 82565; 80076; 81003; 84484 ×2; 83880; 70450; 70496; 70498; 71045; 93458; 76937; 70551; 96372; 96374; 99285; Q9967; C1893; Q9966; J1644; J7512; J1650 ×2; J1200; J2001; J0461; J2250; J3010; J2270; J2930; G0378 ×6; J7040; J7030

== ENCOUNTER 2023-06-23 06:16 | Day surgery (SDC) | payer BC ==
[2023-06-11 08:20] LABS: Absolute Lymphocytes (CBC) 1.7 K/uL (0.7-4.9); Hematocrit 44.6 % (39.6-49.0); Lymphocytes % 32.4 % (15.3-44.8); MCV 94.7 fL (80-100); Platelets 220 thou/uL (152-406); RBC Red Blood Cell Count 4.71 M/uL (4.33-5.43)
[2023-06-11 08:31] LABS: Protime INR 1.06
[2023-06-11 08:34] LABS: Potassium 3.9 mEq/L (3.5-5.1)
[2023-06-23] MEDS ORDERED: Ringers Lactate 1,000 ML IV ONE (06:30)
[2023-06-23] MEDS ORDERED: LIDOCAINE 1% MPF 5 ML VIAL ONE (07:29)
[2023-06-23] MEDS ORDERED: MIDAZOLAM HCL 2 MG/2 ML INJ ONE (07:29)
[2023-06-23] MEDS ORDERED: propofoL 200 MG/20 ML VIAL IV ONE (07:29)
[2023-06-23] MEDS ORDERED: CEFAZOLIN SODIUM 2 GM/VIAL ONE (07:32)
[2023-06-23] MEDS ORDERED: FENTANYL CITR 100 MCG/2 ML ONE (07:41)
[2023-06-23] MEDS ORDERED: PHENAZOPYRIDINE 100MG TAB PO ONE (07:43)
[2023-06-23] MEDS ORDERED: CODEINE 30MG/APAP 300MG TAB PO PRN (07:43)
[2023-06-23] MEDS ORDERED: ONDANSETRON 4 MG/2 ML VIAL ONE (07:44)
[2023-06-23] MEDS ORDERED: dexAMETHasone 10 MG/ML VIAL ONE (07:44)
[2023-06-23] MEDS: HYDROMORPHONE HCL 1 MG/ML INJ ONE ×2 (08:40→08:49)
--- NOTE | 2023-06-23 08:49 | OP ---
Surgeon: KINJAL PRATT Preoperative Diagnoses: Benign prostatic hypertrophy with lower urinary tract obstruction and sympto ms. Postoperative Diagnoses: Benign prostatic hypertrophy with lower urinary tract obstruction and sympt oms. Principal Procedure: Prostatic urethral lift/UroLift with 4 implants placed. Indication For Procedure: This is a 52-year-old gentleman who presented to the [facility] with b othersome obstructive LUTS due to BPH. He was placed on Flomax and noted a significant improvement i n his lower urinary symptoms, but he desired potential procedure or therapy to allow him the opportun ity to potentially eliminate the medical therapy. He was counseled on options and underwent evaluati on and ultimately elected to proceed with the UroLift. Procedure In Detail: The patient was consented in the preoperative holding area before being transfe rred to the operative suite where general anesthesia was induced. He was placed in the lithotomy pos ition, padded and secured to the table appropriately. His genitalia were prepped with Hibiclens and he was draped in standard fashion. The case was begun using the 20-Nepali UroLift sheath and a visua l obturator to traverse the urethra and into the bladder with ease. The bladder was free of any obvi ous mucosal lesions, foreign bodies, or stones. The prostatic anatomy revealed kissing and slightly interdigitating lateral lobar hypertrophy without significant intravesical projection. As a result, I switched the visual obturator for a UroLift implant delivery device and the first implant. I targe julio the first implant on the patient's left side at the bladder neck region about 1.5 to 2 cm distal to the bladder neck opening. In that location, with the scope significantly elevated targeting the 1 to 2 o'clock position, I angled the scope about 15 degrees toward the tissue before pulling the trig allen once deploying the needle through the substance of the prostate. I angled the needle and scope a n additional 15 degrees laterally to ensure it was delivered through to the capsular surface before p ulling the trigger a second time delivering the capsular tab and partially retracting the needle. I then pulled the trigger a third time completely retracting the needle and tensioning the suture. I phoenix boone advanced the scope back toward the midline and 2-3 mm toward the bladder neck until the white esther e of the monofilament was centered in the delivery bay, but yet still the scope tip was within the op ening of the bladder neck. I then pulled the trigger a fourth time deploying the urethral in piece a nd tailoring the suture nicely lateralizing the tissue and elevating the channel on the patient's lef t side at the bladder neck. I then advanced the scope back into the bladder and switched the implant delivery device and removed the old implant and replaced it with a fresh implant. I then similarly targeted the patient's right side 1.5 to 2 cm distal to the bladder neck at the 11 o'clock position. I went through the same series of steps as described above and ultimately deployed an implant that n icely elevated and lateralized the tissue at the bladder neck on the patient's right side. I then mar rveyed the channel created using a visual track equipment operator, observing residual apical mid gland hypertrophy; so I switched the delivery device for a new implant and applied a third implant at the patient's apex on the left at the level of the verumontanum, which did nicely actually open up the channel on the l eft side and removed all of the lateral lobar hypertrophy that was present from the apex and mid glan d on the left. I then advanced the scope back into the bladder and switched for new implant before p lacing a fourth implant on the patient's right side at the 9 to 10 o'clock position at the level of t he verumontanum. This did also deployed implant that essentially removed all of the lateral lobar hy pertrophy present on the right side and created a beautiful continuous anterior channel visible from the verumontanum through into the bladder neck with the bladder completely decompressed. As a result , no additional implants were required or would be of any significant additional benefit; so after mar rveying the channel created using the visual obturator, I backfilled his bladder with saline before r emoving the scope and replacing an 18-Nepali Rivera catheter into his bladder with ease. I placed 20 cc of sterile water in the balloon, and the efflux of urine was light pink to clear. The patient's F oley was connected to a floor bag, and he was taken out of the lithotomy position. He was then awake lukas from general anesthesia before being transferred to a stretcher and then transferred to the [facility] room in good condition. Complications: None. Discharge Disposition: He will be standard UroLift pathway with followup to be established in about 1 month's time. He will be given a voiding trial prior to discharge from the recovery room. JOSE RAMON/GILMER Voice ID: [id number] Report ID: [id number]
[2023-06-23 08:59] VITALS: BP 118/60; TEMP 97.4; O2SAT 99
== END 2023-06-23 10:30 | disposition home or self-care (01) ==
LOC: OR 06:16
PROVIDERS: ATTEND Urology
PROC: 0T7D8DZ Dilation of Urethra with Intraluminal Device, Via Natural or Artificial Opening Endoscopic (ICD-10-PCS; principal; 2023-06-23 07:30)
DX: N40.1 Benign prostatic hyperplasia with lower urinary tract symptoms (principal); N13.8 Other obstructive and reflux uropathy; I10 Essential (primary) hypertension; E78.5 Hyperlipidemia, unspecified; K21.9 Gastro-esophageal reflux disease without esophagitis
CPT/HCPCS: 87088; 85025; 87086; 80048; 36415; 85610; 85730; 52441; 52442 ×3; J2704; J2001; J2250; J3010; J1100; J1170; J2405; J7120